=== PATIENT | female | born 1960 | race Caucasian/White ===

== ENCOUNTER → 2016-12-24 | Outpatient (CLI) | payer MEDICARE ==
--- NOTE | 2016-12-24 14:37 | NM ---
EXAMINATION TYPE: NM bone/joint limited DATE OF EXAM: 12/24/2016 COMPARISON: NONE HISTORY: Left foot metatarsalgia. TECHNIQUE: After the intravenous administration of 26.6 mCi Tc 99m MDP. Images acquired 3 hours pos t injection. Multiple views of the are submitted. There is increased uptake in the right forefoot both medially and laterally. There is increased upta ke in the region of the third MTP joint on the left. IMPRESSION: 1. ACTIVITY ON THE RIGHT IS LIKELY DEGENERATIVE. 2. ACTIVITY IN THE REGION OF THE THIRD MTP JOINT. ACCOMPANYING RADIOGRAPH FAILS TO SHOW A DEFINITE AB NORMALITY IN THIS AREA.
== END | disposition home or self-care (01) ==
LOC: RADNMMAIN 10:20
PROVIDERS: ATTEND Orthopaedic Surgery
DX: M77.42 Metatarsalgia, left foot (principal); M20.42 Other hammer toe(s) (acquired), left foot; M21.42 Flat foot [pes planus] (acquired), left foot; E10.9 Type 1 diabetes mellitus without complications; M84.375A Stress fracture, left foot, initial encounter for fracture
CPT/HCPCS: 78300; A9503

== ENCOUNTER → 2017-03-26 | Outpatient (CLI) | payer MEDICARE ==
--- NOTE | 2017-03-26 10:27 | XR ---
EXAMINATION TYPE: XR hand complete LT DATE OF EXAM: 03/26/2017 CLINICAL HISTORY: Pain and swelling after fall injury a few months ago TECHNIQUE: Frontal, lateral and oblique images of the left hand are obtained. COMPARISON: None. FINDINGS: There is no acute fracture/dislocation evident in the left hand. The joint spaces in the l eft hand appear within normal limits. The overlying soft tissue appears unremarkable. IMPRESSION: There is no acute or subacute fracture or dislocation in the left hand.
== END | disposition home or self-care (01) ==
LOC: RADXRMAIN 09:53
PROVIDERS: ATTEND Physician Assistant
DX: M79.642 Pain in left hand (principal)

== ENCOUNTER → 2017-06-25 | Outpatient (CLI) | payer MEDICARE ==
--- NOTE | 2017-06-26 13:36 | MM ---
Reason for exam: screening (asymptomatic). Last mammogram was performed 1 year and 3 months ago. History: Patient is postmenopausal. Family history of breast cancer in maternal aunt at age 50 and breast cancer in maternal aunt at age 60. Physical Findings: A clinical breast exam by your physician is recommended on an annual basis and results should be correlated with mammographic findings. MG 3D Screening Mammo W/Cad Bilateral CC, MLO, and XCCL view(s) were taken. Prior study comparison: April 03, 2016, bilateral MG 3d screening mammo w/cad. March 03, 2014, bilateral MG screening mammo w CAD. January 21, 2013, bilateral digital screening mammo w/CAD. There are scattered fibroglandular densities. Finding: There are typically benign round, regional calcifications in the anterior position of the right breast. There is no discrete abnormality. ASSESSMENT: Benign, BI-RAD 2 RECOMMENDATION: Routine screening mammogram of both breasts in 1 year.
== END | disposition home or self-care (01) ==
LOC: RADMAMWWP 11:01
PROVIDERS: ATTEND Family Medicine
DX: Z12.31 Encounter for screening mammogram for malignant neoplasm of breast (principal)
CPT/HCPCS: 77063; 77067

== ENCOUNTER 2018-01-20 15:12 | Inpatient (IN) | payer MEDICARE ==
[2018-01-20] MEDS ORDERED: NITROGLYCERIN OINT 1 INCH/GM PACKET TOPICAL STA (15:39)
[2018-01-20] MEDS ORDERED: ASPIRIN 81 MG PO STA (15:39)
--- NOTE | 2018-01-20 15:42 | ED ---
General Adult HPI - General Chief complaint: Chest Pain Stated complaint: Chest Pain Time Seen by Provider: 01/20/18 15:25 Source: patient, family, RN notes reviewed Mode of arrival: wheelchair Limitations: no limitations - History of Present Illness Initial comments: Patient is a pleasant 57-year-old female presenting to the emergency Department with complaints of chest discomfort. Onset of symptoms was a few days ago. Symptoms were severe on Saturday. Patient is having one to 2 episodes daily. Discomfort feels like pressure with some radiation towards the jaw. At one point there was some radiation towards the arm. Patient does have some mild associated dyspnea and nausea. No diaphoresis. Patient also has some palpitations. Patient does have a history of similar symptoms previously when she saw cardiology and was diagnosed with palpitations. - Related Data Home Medications Medication Instructions Recorded Confirmed Albuterol Sulfate [Proair Hfa] 1 - 2 puff INHALATION Q6HR PRN 10/09/14 01/20/18 Calcium Carbonate [Calcium] 600 mg PO HS 10/09/14 01/20/18 DULoxetine HCL [Cymbalta] 60 mg PO DAILY 10/09/14 01/20/18 Ergocalciferol [Vitamin D2] 50,000 unit PO TH 10/09/14 01/20/18 Exenatide Microspheres [Bydureon] 2 mg SQ SA 10/09/14 01/20/18 Ezetimibe [Zetia] 10 mg PO DAILY 10/09/14 01/20/18 HYDROcodone/APAP 7.5-325MG [We[place] 1 each PO Q8H PRN 10/09/14 01/20/18 7.5-325] Insulin Lispro [humaLOG] 4 units SQ W/BRKFST 10/09/14 01/20/18 Insulin NPH Human Isophane 16 unit SQ HS 10/09/14 01/20/18 [humuLIN N] Lidocaine 5% Patch [Lidoderm] 1 patch TOPICAL Q12H PRN 10/09/14 01/20/18 Montelukast [Singulair] 10 mg PO HS 10/09/14 01/20/18 Nadolol [Corgard] 40 mg PO BID 10/09/14 01/20/18 Pioglitazone [Actos] 15 mg PO DAILY 10/09/14 01/20/18 Ranitidine HCl [Zantac] 150 mg PO BID PRN 10/09/14 01/20/18 metFORMIN HCL [Glucophage] 1,000 mg PO BID 10/09/14 01/20/18 Aspirin [Adult Low Dose Aspirin EC] 81 mg PO DAILY 01/20/18 01/20/18 Furosemide [Lasix] 10 mg PO DAILY 01/20/18 01/20/18 Levothyroxine Sodium [Synthroid] 137 mcg PO DAILY 01/20/18 01/20/18 Ramipril [Altace] 10 mg PO DAILY 01/20/18 01/20/18 Allergies Allergy/AdvReac Type Severity Reaction Status Date / Time codeine Allergy Nausea & Verified 01/20/18 16:20 Vomiting morphine Allergy Rash/Hives Verified 01/20/18 16:20 Penicillins Allergy Rash/Hives Verified 01/20/18 16:20 Sulfa (Sulfonamide Allergy Rash/Hives Verified 01/20/18 16:20 Antibiotics) Review of Systems ROS Statement: Those systems with pertinent positive or pertinent negative responses have been documented in the HPI. ROS Other: All systems not noted in ROS Statement are negative. Constitutional: Denies: fever Eyes: Denies: eye pain ENT: Denies: ear pain Respiratory: Reports: dyspnea. Denies: cough Cardiovascular: Reports: chest pain Endocrine: Denies: heat or cold intolerance Gastrointestinal: Reports: nausea Genitourinary: Denies: dysuria Musculoskeletal: Denies: back pain Skin: Denies: rash Neurological: Denies: weakness Past Medical History Past Medical History: COPD, Diabetes Mellitus, GERD/Reflux, Hypertension, Osteoarthritis (OA), Thyroid Disorder History of Any Multi-Drug Resistant Organisms: MRSA Date of last positivie culture/infection: 06/01/2015 MDRO Source:: MRSA BACK Past Surgical History: Appendectomy, Back Surgery, Orthopedic Surgery Additional Past Surgical History / Comment(s): medical-cushings, back pain. 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 Past Psychological History: No Psychological Hx Reported Smoking Status: Never smoker Past Alcohol Use History: None Reported Past Drug Use History: None Reported General Exam Limitations: no limitations General appearance: alert, in no apparent distress Head exam: Present: atraumatic Eye exam: Present: normal appearance, PERRL ENT exam: Present: normal oropharynx Neck exam: Present: normal inspection Respiratory exam: Present: normal lung sounds bilaterally Cardiovascular Exam: Present: regular rate, normal rhythm Expanded Peripheral pulses: 2+: Radial (R), Radial (L), Posterior Tibialis (R), Posterior Tibialis (L) GI/Abdominal exam: Present: soft. Absent: tenderness Extremities exam: Present: normal inspection. Absent: pedal edema, calf tenderness Neurological exam: Present: alert Psychiatric exam: Present: normal affect, normal mood Skin exam: Present: normal color Course Vital Signs 01/20/18 01/20/18 15:19 16:58 Temperature 98.3 F 97.8 F Pulse Rate 73 65 Respiratory 18 16 Rate Blood Pressure 145/74 173/76 O2 Sat by Pulse 99 98 Oximetry EKG Findings - EKG Comments: EKG Findings:: Normal sinus rhythm 67. CO 176. QRS 92. QT 410. QTc 433. Left axis. LVH. No acute ST change. Medical Decision Making - Medical Decision Making Patient reevaluated and resting comfortably in bed. Patient updated on results and plan. Case was discussed in detail with Dr. Rain, who will admit his patient. - Lab Data Result diagrams: 01/20/18 15:45 01/20/18 15:45 Lab Results 01/20/18 01/20/18 01/20/18 Range/Units 15:45 15:45 15:45 WBC 8.2 (3.8-10.6) k/uL RBC 4.70 (3.80-5.40) m/uL Hgb 13.4 (11.4-16.0) gm/dL Hct 43.6 (34.0-46.0) % MCV 92.7 (80.0-100.0) fL MCH 28.4 (25.0-35.0) pg MCHC 30.7 L (31.0-37.0) g/dL RDW 14.3 (11.5-15.5) % Plt Count 314 (150-450) k/uL Neutrophils % 73 % Lymphocytes % 17 % Monocytes % 5 % Eosinophils % 2 % Basophils % 1 % Neutrophils # 6.0 (1.3-7.7) k/uL Lymphocytes # 1.4 (1.0-4.8) k/uL Monocytes # 0.4 (0-1.0) k/uL Eosinophils # 0.2 (0-0.7) k/uL Basophils # 0.1 (0-0.2) k/uL Hypochromasia Slight PT (9.0-12.0) sec INR (<1.2) APTT (22.0-30.0) sec Sodium 139 (137-145) mmol/L Potassium 5.1 (3.5-5.1) mmol/L Chloride 105 (98-107) mmol/L Carbon Dioxide 26 (22-30) mmol/L Anion Gap 8 mmol/L BUN 33 H (7-17) mg/dL Creatinine 1.17 H (0.52-1.04) mg/dL Est GFR (CKD-EPI)AfAm 59 (>60 ml/min/1.73 sqM) Est GFR (CKD-EPI)NonAf 52 (>60 ml/min/1.73 sqM) Glucose 114 H (74-99) mg/dL Calcium 9.2 (8.4-10.2) mg/dL Magnesium 1.8 (1.6-2.3) mg/dL Total Bilirubin 0.4 (0.2-1.3) mg/dL AST 25 (14-36) U/L ALT 26 (9-52) U/L Alkaline Phosphatase 80 (38-126) U/L Total Creatine Kinase 54 (30-135) U/L CK-MB (CK-2) 1.0 (0.0-2.4) ng/mL CK-MB (CK-2) Rel Index 1.9 Troponin I <0.012 (0.000-0.034) ng/mL NT-Pro-B Natriuret Pep pg/mL Total Protein 7.1 (6.3-8.2) g/dL Albumin 3.9 (3.5-5.0) g/dL 01/20/18 01/20/18 Range/Units 15:45 15:45 WBC (3.8-10.6) k/uL RBC (3.80-5.40) m/uL Hgb (11.4-16.0) gm/dL Hct (34.0-46.0) % MCV (80.0-100.0) fL MCH (25.0-35.0) pg MCHC (31.0-37.0) g/dL RDW (11.5-15.5) % Plt Count (150-450) k/uL Neutrophils % % Lymphocytes % % Monocytes % % Eosinophils % % Basophils % % Neutrophils # (1.3-7.7) k/uL Lymphocytes # (1.0-4.8) k/uL Monocytes # (0-1.0) k/uL Eosinophils # (0-0.7) k/uL Basophils # (0-0.2) k/uL Hypochromasia PT 9.9 (9.0-12.0) sec INR 1.0 (<1.2) APTT 22.8 (22.0-30.0) sec Sodium (137-145) mmol/L Potassium (3.5-5.1) mmol/L Chloride (98-107) mmol/L Carbon Dioxide (22-30) mmol/L Anion Gap mmol/L BUN (7-17) mg/dL Creatinine (0.52-1.04) mg/dL Est GFR (CKD-EPI)AfAm (>60 ml/min/1.73 sqM) Est GFR (CKD-EPI)NonAf (>60 ml/min/1.73 sqM) Glucose (74-99) mg/dL Calcium (8.4-10.2) mg/dL Magnesium (1.6-2.3) mg/dL Total Bilirubin (0.2-1.3) mg/dL AST (14-36) U/L ALT (9-52) U/L Alkaline Phosphatase (38-126) U/L Total Creatine Kinase (30-135) U/L CK-MB (CK-2) (0.0-2.4) ng/mL CK-MB (CK-2) Rel Index Troponin I (0.000-0.034) ng/mL NT-Pro-B Natriuret Pep 520 pg/mL Total Protein (6.3-8.2) g/dL Albumin (3.5-5.0) g/dL - Radiology Data Radiology results: image reviewed (X-ray shows no acute process) Disposition Clinical Impression: Chest pain Disposition: ADMITTED IP TO THIS HOSP Is patient prescribed a controlled substance at d/c from ED?: No Referrals: Krish Rain MD [Primary Care Provider] - 1-2 days Decision Time: 17:10
[2018-01-20 15:53] LABS: Basophils # (A) 0.1 k/uL (0-0.2); Basophils % (A) 1 %; Eosinophils # (A) 0.2 k/uL (0-0.7); Eosinophils % (A) 2 %; HCT 43.6 % (34.0-46.0); HGB 13.4 gm/dL (11.4-16.0); Hypochromasia Slight; Lymphocytes # (A) 1.4 k/uL (1.0-4.8); Lymphocytes % (A) 17 %; MCH 28.4 pg (25.0-35.0); MCHC 30.7 g/dL (31.0-37.0); MCV 92.7 fL (80.0-100.0); Mean Platelet Volume 7.1; Monocytes # (A) 0.4 k/uL (0-1.0); Monocytes % (A) 5 %; Neutrophils % (A) 73 %; Platelet Count 314 k/uL (150-450); RDW 14.3 % (11.5-15.5); WBC 8.2 k/uL (3.8-10.6)
[2018-01-20 16:03] LABS: Partial Thromboplastin Time 22.8 sec (22.0-30.0); Prothrombin Time 9.9 sec (9.0-12.0)
[2018-01-20 16:06] LABS: Albumin 3.9 g/dL (3.5-5.0); Calcium 9.2 mg/dL (8.4-10.2); Magnesium 1.8 mg/dL (1.6-2.3); Potassium 5.1 mmol/L (3.5-5.1); Total Bilirubin 0.4 mg/dL (0.2-1.3); Total Protein 7.1 g/dL (6.3-8.2)
[2018-01-20 16:08] LABS: Creatine Kinase 54 U/L (30-135)
[2018-01-20 16:21] LABS: Troponin I <0.012 ng/mL (0.000-0.034)
--- NOTE | 2018-01-20 16:40 | XR ---
EXAMINATION TYPE: XR chest 2V DATE OF EXAM: 01/20/2018 COMPARISON: 05/04/2011 INDICATION: Chest pain TECHNIQUE: Frontal and lateral views of the chest are obtained. FINDINGS: The heart size is normal. The pulmonary vasculature is normal. The lungs are clear. Fixation devices within the lower thoracic spine. IMPRESSION: 1. No acute pulmonary process.
[2018-01-20] MEDS ORDERED: NITROGLYCERIN SL TABS 0.4 MG TAB SUBLINGUAL PRN (17:08)
[2018-01-20 18:34] VITALS: BMI 31.4
[2018-01-20] MEDS ORDERED: ALBUTEROL NEBULIZED 2.5 MG/3 ML INHALATION PRN (18:58)
[2018-01-20] MEDS ORDERED: LIDOCAINE 5% PATCH TOPICAL PRN (19:00)
[2018-01-20] MEDS: NITROGLYCERIN OINT 1 INCH/GM PACKET TOPICAL SCH (20:55)
[2018-01-20 21:03] LABS: Glucose,Whole Blood 124 mg/dL (75-99)
[2018-01-20] MEDS: metFORMIN 500 MG TAB PO SCH (21:07)
[2018-01-20] MEDS: MONTELUKAST 10 MG TAB PO SCH (21:07)
[2018-01-20] MEDS: CALCIUM CARBONATE 500 MG CHEWABLE PO SCH (21:07)
[2018-01-20] MEDS: ATORVASTATIN 10 MG TAB PO SCH (21:45)
[2018-01-20] MEDS: NADOLOL 20 MG TAB PO SCH (21:45)
[2018-01-20] MEDS: INSULIN NPH 300 UNIT/3 ML VIAL SQ SCH (21:45)
[2018-01-20 22:07] LABS: Creatine Kinase 46 U/L (30-135)
[2018-01-20 22:20] LABS: Creatine Kinase MB 0.8 ng/mL (0.0-2.4); Troponin I <0.012 ng/mL (0.000-0.034)
[2018-01-21] MEDS: NITROGLYCERIN OINT 1 INCH/GM PACKET TOPICAL SCH ×2 (00:08→05:52)
[2018-01-21 02:23] LABS: Cholesterol 183 mg/dL (<200); HDL Cholesterol 35 mg/dL (40-60); LDL Cholesterol,Calculated 106 mg/dL (0-99); Triglycerides 208 mg/dL (<150)
[2018-01-21] MEDS: HYDROcodone/APAP 7.5-325MG 1 EACH TAB PO PRN ×3 (02:29→21:34)
[2018-01-21 04:20] LABS: Creatine Kinase 41 U/L (30-135)
[2018-01-21 04:34] LABS: Creatine Kinase MB 0.7 ng/mL (0.0-2.4); Troponin I <0.012 ng/mL (0.000-0.034)
[2018-01-21] MEDS: LEVOTHYROXINE 137 MCG TAB PO SCH (05:54)
[2018-01-21 06:44] LABS: Glucose,Whole Blood 76 mg/dL (75-99)
[2018-01-21] MEDS: INSULIN ASPART 100 UNIT/ML 1 ML 10 ML VIAL SQ SCH (07:54)
[2018-01-21] MEDS ORDERED: AMINOPHYLLINE 500 MG/20 ML VIAL IV PRN (08:00)
[2018-01-21] MEDS ORDERED: REGADENOSON 0.4 MG/5 ML SYRINGE IV ONE (08:00)
--- NOTE | 2018-01-21 08:53 | CONS ---
CONSULTATION Mrs. Henson is a 57-year-old female with a history of hypertension, hyperlipidemia and diabetes mellitus who is followed by Dr. Romo presented with symptoms of chest discomfort. Her discomfort started on Saturday was at rest with some dyspnea and the pain was worse with deep breathing. The discomfort subsequently resolved and she had another episode on Saturday. Yesterday she went to see her primary care physician and was scheduled to undergo outpatient workup but later on during the day, she had an episode while sitting and radiating up to her neck and across the chest and because of that came into the emergency room and subsequently admitted. The patient has no prior documented history of obstructive coronary artery disease. She had underwent myocardial perfusion imaging 2016 was unremarkable. She has no history of exertional chest discomfort. She has some dyspnea on exertion. No dizziness. She has occasional palpitation. No syncope. No PND, orthopnea, or peripheral edema. Her activity level is limited because of arthritis pain. MEDICATIONS: Her medications include ramipril 10 mg daily, metformin 1 gram twice a day, Actos 15 mg daily, nadolol 40 mg twice a day, Singulair, levothyroxine, insulin, Lasix 10 mg daily, Zetia 10 mg daily, Bydureon, vitamin D, Cymbalta, calcium, aspirin, albuterol, ranitidine and Lipitor 4 times a week. REVIEW OF SYSTEMS: RESPIRATORY SYSTEM: She has no recent wheezing. No history of documented asthma, emphysema or bronchitis. GI SYSTEM: No recent GI bleeding. No peptic ulcer disease. SYSTEM: No dysuria or hematuria. NERVOUS SYSTEM: No stroke or seizure. PHYSICAL EXAMINATION: A 57-year-old female, alert, oriented, in no apparent distress. Blood pressure 134/70 with the heart rate in the 60s. HEAD: Normocephalic. EYES: Sclerae anicteric. NECK: Good upstroke. No bruit. No jugular venous distention. LUNGS: Clear to auscultation. HEART: Regular rate and rhythm S1, S2. No S3. No S4. No murmur or rub. ABDOMEN: Soft, nontender, obese. Positive bowel sounds. No organomegaly. EXTREMITIES: No edema. Intact distal pulses. LAB DATA: Lab data revealed troponin less than 0.012. Cholesterol 208, LDL of 106. BUN and creatinine 33 and 1.17. Hemoglobin is 13.4. EKG reveals sinus mechanism with no acute ST-segment changes and voltage criteria for left ventricular hypertrophy. Chest x-ray shows no acute infiltrate. IMPRESSION: 1. Chest discomfort atypical for ischemic heart disease probably noncardiac in a patient with multiple risk factors. 2. History of hypertension. 3. Hyperlipidemia. 4. Diabetes mellitus. 5. History of arrhythmia, maintaining sinus mechanism. RECOMMENDATION: I would recommend to proceed with a myocardial perfusion imaging to further assess her status and guide her treatment. The rationale behind the procedure as well as the plan was discussed with the patient who is in full understanding and agreement. Thank you for this consult. We will follow with you. MMODL / IJN: [id number] /
[2018-01-21] MEDS: PIOGLITAZONE 15 MG TAB PO SCH (10:43)
[2018-01-21] MEDS: NADOLOL 20 MG TAB PO SCH ×2 (10:43→21:35)
[2018-01-21] MEDS: EZETIMIBE 10 MG TAB PO SCH (10:43)
[2018-01-21] MEDS: ASPIRIN 325 MG TAB PO SCH (10:43)
[2018-01-21] MEDS: metFORMIN 500 MG TAB PO SCH ×2 (10:43→17:39)
[2018-01-21] MEDS: DULoxetine HCL 60 MG CAPSULE.DR PO SCH (10:43)
[2018-01-21] MEDS: LISINOPRIL 20 MG TAB PO SCH (10:43)
[2018-01-21] MEDS: FUROSEMIDE 10 MG TAB PO SCH (10:44)
[2018-01-21] MEDS: FAMOTIDINE 20 MG TAB PO PRN ×2 (10:46→21:39)
--- NOTE | 2018-01-21 11:17 | NM ---
EXAMINATION TYPE: NM stress lexiscan cardiolite DATE OF EXAM: 01/21/2018 COMPARISON: NONE HISTORY: Chest pain TECHNIQUE: After the intravenous administration of 10.23 mCi Tc 99m Sestamibi - Cardiolite resting S PECT images acquired 45 minutes post injection. The patient received 0.4mg Lexiscan, 25.9 mCi Tc 99m Sestamibi - Stress images obtained [address] injection FINDINGS: Review of stress and rest SPECT images demonstrates mild decreased uptake along the anteroseptal left ventricle on stress as compared to rest images.Gated analysis shows normal wall motion with an estim ated left ventricular ejection fraction of 52 %. IMPRESSION: Findings suggest pharmacologically induced left ventricular myocardial ischemia.
--- NOTE | 2018-01-21 11:50 | ECHOF ---
Referral Reason:cp MEASUREMENTS -------- HEIGHT: 177.8 cm WEIGHT: 99.3 kg BP: RVIDd: 2.8 cm (< 3.3) IVSd: 1.5 cm (0.6 - 1.1) LVIDd: 3.4 cm (3.9 - 5.3) LVPWd: 1.5 cm (0.6 - 1.1) IVSs: 1.5 cm LVIDs: 2.2 cm LVPWs: 1.6 cm LAESV Index (A-L): 20.44 ml/m Ao Diam: 3.4 cm (2.0 - 3.7) AV Cusp: 2.3 cm (1.5 - 2.6) LA Diam: 3.8 cm (2.7 - 3.8) EPSS: 1.3 cm MV E Cedrick: 0.45 m/s MV DecT: 261 ms MV A Cedrick: 0.71 m/s MV E/A Ratio: 0.64 RAP: 5.00 mmHg RVSP: 16.52 mmHg MV EF SLOPE: 52.85 mm/s (70 - 150) MV EXCURSION: 1.29 cm (> 18.000) FINDINGS -------- Sinus rhythm. This was a technically difficult study with suboptimal views. The left ventricular size is normal. There is moderate concentric left ventricular hypertrophy. O verall left ventricular systolic function is normal with, an EF between 55 - 60 %. The right ventricle is normal in size and function. Normal LA size by volume 22+/-6 ml/m2. The right atrium is normal in size. 5 ml of Lumason was utilized for enhancement of images. Aortic valve is trileaflet and is mildly thickened. There is mild aortic regurgitation. There is no evidence of aortic stenosis. The mitral valve is normal. There is trace mitral regurgitation. Trace tricuspid regurgitation present. Right ventricular systolic pressure is normal at < 35 mmHg. There is no evidence of pulmonary hypertension. The pulmonic valve was not well visualized. There is no pulmonic regurgitation present. The aortic root size is normal. IVC Not well visulized. There is no pericardial effusion. CONCLUSIONS -------- 1. Sinus rhythm. 2. This was a technically difficult study with suboptimal views. 3. The left ventricular size is normal. 4. There is moderate concentric left ventricular hypertrophy. 5. Overall left ventricular systolic function is normal with, an EF between 55 - 60 %. 6. Normal LA size by volume 22+/-6 ml/m2. 7. 5 ml of Lumason was utilized for enhancement of images. 8. Aortic valve is trileaflet and is mildly thickened. 9. There is mild aortic regurgitation. 10. There is trace mitral regurgitation. 11. Trace tricuspid regurgitation present. 12. Right ventricular systolic pressure is normal at < 35 mmHg. 13. The pulmonic valve was not well visualized. 14. There is no pulmonic regurgitation present. 15. The aortic root size is normal. 16. IVC Not well visulized. 17. There is no pericardial effusion. BAG HANGER: Matt Caicedo RDCS
[2018-01-21 12:18] LABS: Glucose,Whole Blood 102 mg/dL (75-99)
--- NOTE | 2018-01-21 12:42 | P.HPIM ---
History of Present Illness 57-year-old female presented to her family physician office yesterday with complaints of chest pain intermittently for 2 days. Subsequently developed more chest pain that radiated to her neck presented then the emergency room. 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 Past Anesthesia/Blood Transfusion Reactions: No Reported Reaction Past Psychological History: No Psychological Hx Reported Smoking Status: Never smoker Past Alcohol Use History: None Reported Past Drug Use History: None Reported Medications and Allergies Home Medications Medication Instructions Recorded Confirmed Type Albuterol Sulfate [Proair Hfa] 1 - 2 puff INHALATION Q6HR PRN 10/09/14 01/20/18 History Calcium Carbonate [Calcium] 600 mg PO HS 10/09/14 01/20/18 History DULoxetine HCL [Cymbalta] 60 mg PO DAILY 10/09/14 01/20/18 History Ergocalciferol [Vitamin D2] 50,000 unit PO TH 10/09/14 01/20/18 History Exenatide Microspheres [Bydureon] 2 mg SQ SA 10/09/14 01/20/18 History Ezetimibe [Zetia] 10 mg PO DAILY 10/09/14 01/20/18 History HYDROcodone/APAP 7.5-325MG [[place]ette 1 each PO Q8H PRN 10/09/14 01/20/18 History 7.5-325] Insulin Lispro [humaLOG] 4 units SQ W/BRKFST 10/09/14 01/20/18 History Insulin NPH Human Isophane 16 unit SQ HS 10/09/14 01/20/18 History [humuLIN N] Lidocaine 5% Patch [Lidoderm] 1 patch TOPICAL Q12H PRN 10/09/14 01/20/18 History Montelukast [Singulair] 10 mg PO HS 10/09/14 01/20/18 History Nadolol [Corgard] 40 mg PO BID 10/09/14 01/20/18 History Pioglitazone [Actos] 15 mg PO DAILY 10/09/14 01/20/18 History Ranitidine HCl [Zantac] 150 mg PO BID PRN 10/09/14 01/20/18 History metFORMIN HCL [Glucophage] 1,000 mg PO BID 10/09/14 01/20/18 History Aspirin [Adult Low Dose Aspirin EC] 81 mg PO DAILY 01/20/18 01/20/18 History Atorvastatin [Lipitor] 1 tab PO DIRECTED 01/20/18 01/20/18 History Furosemide [Lasix] 10 mg PO DAILY 01/20/18 01/20/18 History Levothyroxine Sodium [Synthroid] 137 mcg PO DAILY 01/20/18 01/20/18 History Ramipril [Altace] 10 mg PO DAILY 01/20/18 01/20/18 History Allergies Allergy/AdvReac Type Severity Reaction Status Date / Time codeine Allergy Nausea & Verified 01/20/18 16:20 Vomiting morphine Allergy Rash/Hives Verified 01/20/18 16:20 Penicillins Allergy Rash/Hives Verified 01/20/18 16:20 Sulfa (Sulfonamide Allergy Rash/Hives Verified 01/20/18 16:20 Antibiotics) Physical Exam Vitals: Vital Signs Temp Pulse Pulse Resp BP BP Pulse Ox 01/21/18 11:52 98.5 F 70 16 141/80 99 01/21/18 07:10 98.2 F 65 16 134/76 98 01/21/18 03:56 97.6 F 63 16 144/79 97 01/21/18 03:38 16 01/21/18 00:00 16 01/20/18 23:36 98.2 F 70 16 123/76 97 01/20/18 20:00 16 01/20/18 18:47 71 16 01/20/18 18:05 97.6 F 71 16 141/82 99 01/20/18 18:04 97.8 F 78 16 159/78 98 01/20/18 16:58 97.8 F 65 16 173/76 98 01/20/18 15:19 98.3 F 73 18 145/74 99 Intake and Output 01/20/18 01/21/18 01/21/18 22:59 06:59 14:59 Intake Total 0 Balance 0 Intake: Oral 0 Other: Voiding Method Toilet Toilet # Voids 2 Weight 99.337 kg 99.337 kg - Constitutional General appearance: obese - EENT Eyes: PERRLA Ears: bilateral: normal - Neck Neck: normal ROM - Respiratory Respiratory: bilateral: CTA - Cardiovascular Rhythm: regular - Gastrointestinal General gastrointestinal: soft - Integumentary Integumentary: normal - Neurologic Neurologic: CNII-XII intact - Musculoskeletal Musculoskeletal: gait normal - Psychiatric Psychiatric: A&O x's 3, appropriate affect, intact judgment & insight Results CBC & Chem 7: 01/20/18 15:45 01/20/18 15:45 Labs: Abnormal Lab Results - Last 24 Hours (Table) 01/20/18 01/20/18 01/20/18 Range/Units 15:45 15:45 15:45 MCHC 30.7 L (31.0-37.0) g/dL BUN 33 H (7-17) mg/dL Creatinine 1.17 H (0.52-1.04) mg/dL Glucose 114 H (74-99) mg/dL POC Glucose (mg/dL) (75-99) mg/dL Triglycerides 208 H (<150) mg/dL LDL Cholesterol, Calc 106 H (0-99) mg/dL HDL Cholesterol 35 L (40-60) mg/dL 01/20/18 01/21/18 Range/Units 20:58 12:08 MCHC (31.0-37.0) g/dL BUN (7-17) mg/dL Creatinine (0.52-1.04) mg/dL Glucose (74-99) mg/dL POC Glucose (mg/dL) 124 H 102 H (75-99) mg/dL Triglycerides (<150) mg/dL LDL Cholesterol, Calc (0-99) mg/dL HDL Cholesterol (40-60) mg/dL Chest x-ray: report reviewed Thrombosis Risk Factor Assmnt - Choose All That Apply Any of the Below Risk Factors Present?: Yes Each Factor Represents 1 point: Age 41-60 years, Obesity (BMI >25) Other Risk Factors: No Thrombosis Risk Factor Assessment Total Risk Factor Score: 2 Thrombosis Risk Factor Assessment Level: Low Risk Assessment and Plan Plan: Assessment Chest pain Lexiscan showing left ventricular myocardial ischemia History of COPD Diabetes type 2 GERD Hypertension Hyper lipidemia Osteoarthritis Thyroid disease Plan Continue consultation with cardiology
--- NOTE | 2018-01-21 13:08 | EST ---
EXERCISE STRESS DATE OF SERVICE: 01/21/2018 AGE: 57 SEX: Female HT: 70" WT: 219 pounds PROTOCOL: Lexiscan Cardiolite STAGE: DURATION OF EXERCISE: HEART RATE REST: 70 BLOOD PRESSURE REST: 144/81 MAXIMUM HEART RATE ACHIEVED: 84 MAXIMUM BLOOD PRESSURE: 161/87 85% MPHR: 100% MPHR: METS: INDICATIONS: Chest pain. CLINICAL INFORMATION: Baseline rhythm is sinus mechanism, rate 70, normal axis and intervals, normal electrocardiogram. Baseline blood pressure 144/81 mmHg. Patient received an injection of Lexiscan. Electrocardiographic monitoring revealed no evidence of diagnostic ischemic ST deviation. Cardiolite was injected per protocol. CONCLUSION: 1. Nondiagnostic electrocardiograph stress testing. 2. Nuclear images will be reported separately. MMODL / IJN: [id number] /
[2018-01-21] MEDS ORDERED: SODIUM CHLORIDE 0.9% 1,000 ML in EMPTY BAG 1 BAG IV ONE (14:01)
[2018-01-21] MEDS ORDERED: ALPRAZolam 0.5 MG TAB PO PRN (14:01)
[2018-01-21] MEDS ORDERED: ALPRAZolam 0.25 MG TAB PO PRN (14:01)
--- NOTE | 2018-01-21 14:12 | P.PN ---
Progress Note - Text Lexiscan stress test revealed possible area of stress induced ischemia with decreased uptake along sara-septal LV. 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 I have discussed the risks, benefits and alternative therapies for the above-mentioned procedure and for both sedation/analgesia as well as necessary blood product administration, if indicated, as they pertain to this patient. The patient has indicated understanding and acceptance of the risks and procedures discussed. Questions have been answered appropriately and she is agreeable to proceed with above stated procedure. This has been boarded for tomorrow morning pending Dr. Romo's review of the images.
[2018-01-21 14:35] LABS: Hemoglobin A1C 6.7 % (4.0-6.0)
[2018-01-21 17:12] LABS: Glucose,Whole Blood 100 mg/dL (75-99)
[2018-01-21 20:51] LABS: Glucose,Whole Blood 114 mg/dL (75-99)
[2018-01-21] MEDS: MONTELUKAST 10 MG TAB PO SCH (21:34)
[2018-01-21] MEDS: CALCIUM CARBONATE 500 MG CHEWABLE PO SCH (21:35)
[2018-01-21] MEDS: INSULIN NPH 300 UNIT/3 ML VIAL SQ SCH (21:35)
[2018-01-22] MEDS: LEVOTHYROXINE 137 MCG TAB PO SCH (06:42)
[2018-01-22] MEDS: ATORVASTATIN 10 MG TAB PO SCH (06:42)
[2018-01-22] MEDS: DULoxetine HCL 60 MG CAPSULE.DR PO SCH (06:42)
[2018-01-22] MEDS: ASPIRIN 325 MG TAB PO SCH (06:42)
[2018-01-22] MEDS: LISINOPRIL 20 MG TAB PO SCH (06:42)
[2018-01-22] MEDS: EZETIMIBE 10 MG TAB PO SCH (06:43)
[2018-01-22 06:49] LABS: Glucose,Whole Blood 106 mg/dL (75-99)
[2018-01-22] MEDS: INSULIN ASPART 100 UNIT/ML 1 ML 10 ML VIAL SQ SCH (08:29)
[2018-01-22] MEDS: NADOLOL 20 MG TAB PO SCH ×2 (08:29→21:41)
[2018-01-22] MEDS: HYDROcodone/APAP 7.5-325MG 1 EACH TAB PO PRN ×2 (08:39→19:58)
[2018-01-22] MEDS ORDERED: IV FLUID CONTINUATION 600 ML IV ONE (11:15)
[2018-01-22] MEDS ORDERED: LIDOCAINE 1% INJ 10MG/ML (20 ML MDV) ONE (11:19)
[2018-01-22] MEDS ORDERED: VERAPAMIL 2.5 MG/ML 2 ML AMP ONE (11:19)
[2018-01-22] MEDS ORDERED: MIDAZOLAM 2 MG/2 ML VIAL ONE (11:19)
[2018-01-22] MEDS ORDERED: fentaNYL (PF) 50 MCG/ML 2 ML AMP ONE (11:19)
[2018-01-22] MEDS ORDERED: HEPARIN SODIUM 1,000 UN/ML (10ML VL) ONE (11:19)
[2018-01-22] MEDS ORDERED: MIDAZOLAM 2 MG/2 ML VIAL IVP ONE (11:40)
[2018-01-22] MEDS ORDERED: fentaNYL (PF) 50 MCG/ML 2 ML AMP IVP ONE (11:40)
[2018-01-22] MEDS ORDERED: LIDOCAINE 1% INJ 10MG/ML (10 ML MDV) SQ ONE (11:43)
[2018-01-22] MEDS ORDERED: VERAPAMIL SYRINGE (5 MG/10 ML) INTRAARTER ONE (11:50)
[2018-01-22] MEDS ORDERED: HEPARIN SODIUM 1,000 UN/ML (10ML VL) IV ONE (11:52)
[2018-01-22] MEDS ORDERED: PRASUGREL 10 MG TAB ONE (12:15)
[2018-01-22] MEDS ORDERED: PRASUGREL 10 MG TAB PO ONE (12:19)
[2018-01-22] MEDS ORDERED: BIVALIRUDIN BOLUS 250 MG/50 ML IV ONE (12:22)
[2018-01-22] MEDS ORDERED: BIVALIRUDIN 250 MG in SODIUM CHLORIDE 0.9% 50 ML IV ONE (12:22)
[2018-01-22] MEDS ORDERED: NITROGLYCERIN 1000MCG/10ML SYRINGE INTRAARTER ONE (12:24)
[2018-01-22] MEDS ORDERED: IOPAMIDOL-370 125ML BTL INJ ONE (12:28)
[2018-01-22] MEDS ORDERED: IOPAMIDOL-370 50ML BTL INJ ONE (12:39)
[2018-01-22] MEDS ORDERED: NITROGLYCERIN SL TABS 0.4 MG TAB SUBLINGUAL PRN (12:43)
[2018-01-22] MEDS ORDERED: MAG HYDROX/AL HYDROX/SIMETH 30 ML CUP PO PRN (12:43)
[2018-01-22] MEDS ORDERED: RX INFO: IV CONTRAST WAS GIVEN 1 EACH MISC MISCELLANE PRN (12:43)
[2018-01-22] MEDS ORDERED: ATROPINE SULFATE 0.1 MG/ML 10ML SYRINGE IV PRN (12:43)
[2018-01-22] MEDS ORDERED: ZOLPIDEM 5 MG TAB PO PRN (12:43)
[2018-01-22] MEDS ORDERED: SODIUM CHLORIDE 0.9% 1,000 ML IV SCH (12:45)
--- NOTE | 2018-01-22 14:16 | P.CARDCATH ---
Date of Procedure: 01/22/18 Preoperative Diagnosis: Chest pains and positive stress test Postoperative Diagnosis: Critical lesion involving the mid LAD Procedure(s) Performed: Left heart catheterization without left ventriculography Description of Procedure: HISTORY: This is a 57-year-old female with history of hypertension, hypercholesteremia, and diabetes who was admitted to the hospital with chest pain and neck pain. Her cardiac enzymes and EKGs were negative. A stress test showed ischemia in the anterolateral wall. Patient is advised to have cardiac catheterization for definitive diagnosis. CONSENT:I have discussed the risks, benefits and alternative therapies for the above-mentioned procedure and for both sedation/analgesia as well as necessary blood product administration, if indicated, as they pertain to this patient. The patient has indicated understanding and acceptance of the risks and procedures discussed. [] PROCEDURE: Patient was brought to the lab in a fasting state. Patient was given some IV sedation. The right wrist is infiltrated with lidocaine and right artery was entered using Seldinger technique. A 6-[place] catheter was left in place and selective coronary arteriography was performed. Patient tolerated the procedure well. Patient went on to have 10 placement of the mid LAD. Dr. Beal Conscious Sedation: Versed 1 mg Fentanyl. 50g Duration 29 minutes HEMODYNAMICS: The aortic pressure is about 130/70. Left ankle end-diastolic pressure is 8-12. There was no gradient across the aortic valve SELECTIVE CORONARY ARTERIOGRAPHY: LEFT MAIN: Normal length and free of occlusive disease THE LEFT ANTERIOR DESCENDING CORONARY ARTERY:. This is a good caliber vessel with mild ectasia and concentric 70% lesion in the mid LAD after the first septal branch. Rest of the LAD is free of occlusive disease THE LEFT CIRCUMFLEX AND IS CORONARY ARTERY:. Fair Caliber vessel free of any occlusive disease THE RIGHT CORONARY ARTERY: Dominant vessel with mild ectasia. Free of any focal occlusive disease LEFT VENTRICULOGRAPHY: Not performed FINAL IMPRESSION: Critical lesion involving the mid LAD PLAN:. Patient is going to have stent placement of the mid LAD PROGNOSIS:. Fair
--- NOTE | 2018-01-22 15:00 | PTCA ---
PERCUTANEOUSTRANS CORORONARY ANGIOGRAPHY Mrs. Henson is a 57-year-old female with a known history of hypertension, hyperlipidemia, and diabetes mellitus who presented with symptoms of chest discomfort and no evidence of myocardial infarction. She underwent myocardial perfusion imaging that revealed evidence of inducible ischemia involving the anteroseptal wall. In view of that, she underwent cardiac catheterization by Dr. Romo, was found to have critical stenosis involving the mid LAD in a calcified segment. Based on those findings, recommendation regarding angioplasty and stenting. The procedures, risks and complications were discussed with the patient who is in full understanding and agreement. PROCEDURE: A 6-[place] 3.5 guiding catheter was introduced into the system. After cannulating the left main, a 0.014 balanced medium weight J-wire was advanced across the lesion and positioned distally. Then a 2.75 x 12 mm Xience Alpine stent was deployed. It was dilated at 16 atmospheres. After the last inflation, after appropriate wait, the balloon and the guidewire were withdrawn back in the guiding catheter. Images were obtained, repeated. Those images reveal stable successful stenting. At that point, the guiding catheter, the balloon and the guidewire were removed. The sheath was removed. Hemostasis was obtained with deployment of a TR band. There was no immediate complication. The patient was returned to her room in stable condition. Of note, the patient received Angiomax per protocol as well as oral loading dose off Effient. She had dyspnea and EKG changes with the inflation that resolved at the end procedure. RESULTS: Successful stenting of the mid LAD with reduction of stenosis from 70% to 0%. RECOMMENDATIONS: The patient will be continued on aspirin, Effient, beta emilee, and statin. The importance of dual antiplatelet treatment were discussed with the patient and her family and they are in full understanding and agreement. Duration of procedure 20 minutes. MMODL / IJN: [id number] /
[2018-01-22] MEDS ORDERED: ACETAMINOPHEN TAB 325 MG TAB ONE (15:47)
[2018-01-22 17:06] LABS: Glucose,Whole Blood 85 mg/dL (75-99)
--- NOTE | 2018-01-22 18:13 | P.PN ---
Subjective Patient interviewed post cardiac cath. Patient sitting up in bed without complaint at this time. Patient had a stent placed to the LAD. Patient will be transferred to [facility] care Objective - Vital Signs Vital signs: Vital Signs Temp 97.6 F 01/22/18 07:14 Pulse 65 01/22/18 14:38 Resp 16 01/22/18 07:14 BP 180/81 01/22/18 14:38 Pulse Ox 97 01/22/18 14:38 Intake & Output 01/21/18 01/22/18 01/22/18 18:59 06:59 18:59 Intake Total 952 400 99.38 Balance 952 400 99.38 Weight 99.337 kg Intake: IV 400 99.38 Sodium Chloride 0.9% 1, 400 000 ml In Empty Bag 1 bag @ 1 ML/KG/HR 99.33 mls/ hr IV .Q10H5M ONE Rx#: [id number] Oral 952 Other: Voiding Method Toilet Toilet Toilet # Voids 2 2 - Constitutional General appearance: Present: obese - EENT Eyes: Present: PERRLA Ears: bilateral: normal - Neck Neck: Present: normal ROM - Respiratory Respiratory: bilateral: CTA - Cardiovascular Rhythm: regular - Gastrointestinal General gastrointestinal: Present: soft - Integumentary Integumentary: Present: normal - Neurologic Neurologic: Present: CNII-XII intact - Musculoskeletal Musculoskeletal: Present: gait normal - Psychiatric Psychiatric: Present: A&O x's 3, appropriate affect, intact judgment & insight - Labs CBC & Chem 7: 01/20/18 15:45 01/20/18 15:45 Labs: Abnormal Lab Results - Last 24 Hours (Table) 01/21/18 01/22/18 Range/Units 20:47 06:44 POC Glucose (mg/dL) 114 H 106 H (75-99) mg/dL Assessment and Plan Plan: Assessment Chest pain Coronary artery disease post stent to LAD History of COPD Diabetes type 2 GERD Hypertension Hyperlipidemia Osteoarthritis Hypothyroidism Plan Continue consultation with cardiology
[2018-01-22] MEDS: PIOGLITAZONE 15 MG TAB PO SCH (19:43)
[2018-01-22] MEDS: MONTELUKAST 10 MG TAB PO SCH (19:58)
[2018-01-22 20:07] VITALS: RESP 16
[2018-01-22] MEDS: FUROSEMIDE 10 MG TAB PO SCH (20:43)
[2018-01-22 21:20] LABS: Glucose,Whole Blood 134 mg/dL (75-99)
[2018-01-22] MEDS: CALCIUM CARBONATE 500 MG CHEWABLE PO SCH (21:41)
[2018-01-22] MEDS: INSULIN NPH 300 UNIT/3 ML VIAL SQ SCH (22:22)
[2018-01-23 05:54] LABS: Glucose,Whole Blood 105 mg/dL (75-99)
[2018-01-23] MEDS: INSULIN ASPART 100 UNIT/ML 1 ML 10 ML VIAL SQ SCH (06:15)
[2018-01-23] MEDS: LEVOTHYROXINE 137 MCG TAB PO SCH (06:16)
[2018-01-23 07:22] LABS: Calcium 9.1 mg/dL (8.4-10.2); Potassium 4.4 mmol/L (3.5-5.1)
--- NOTE | 2018-01-23 08:13 | P.PN ---
Subjective Progress Note Date: 01/23/18 Principal diagnosis: Coronary artery disease This is a pleasant 57-year-old female patient who presented to the hospital with chest discomfort and ruled out for acute coronary event. She underwent a stress test and that showed anterior ischemia. Subsequently she underwent a heart catheterization and that revealed severe disease involving the mid LAD. The patient underwent successful stenting of the mid LAD using drug-eluting stent. On follow-up with her today, she is asymptomatic and denies having any chest pain or discomfort or shortness of breath. No dizziness or lightheadedness and no feeling of heart racing or fluttering. The procedure was performed from the right radial artery and she does have a good right radial pulse. From a cardiovascular standpoint of view, the patient can be discharged home. Objective - Vital Signs Vital signs: Vital Signs Temp 97.4 F L 01/23/18 05:44 Pulse 69 01/23/18 05:44 Resp 16 01/23/18 05:44 BP 126/75 01/23/18 05:44 Pulse Ox 97 01/23/18 05:44 Intake & Output 01/22/18 01/23/18 01/23/18 18:59 06:59 18:59 Intake Total 579.38 Balance 579.38 Intake: IV 99.38 Oral 480 Other: Voiding Method Toilet # Voids 1 1 - Constitutional General appearance: Present: no acute distress - Respiratory Respiratory: bilateral: CTA - Cardiovascular Rhythm: regular Heart sounds: normal: S1, S2 - Labs CBC & Chem 7: 01/20/18 15:45 01/23/18 06:16 Labs: Abnormal Lab Results - Last 24 Hours (Table) 01/22/18 01/23/18 01/23/18 Range/Units 21:19 05:53 06:16 Chloride 109 H (98-107) mmol/L BUN 19 H (7-17) mg/dL POC Glucose (mg/dL) 134 H 105 H (75-99) mg/dL Assessment and Plan Assessment: Assessment #1 CAD and status post stenting of the LAD #2 hypertension #3 dyslipidemia Plan #1 from the cardiovascular standpoint of view, the patient can be discharged home #2 she is on dual antiplatelet therapy #3 continue aspirin, Effient, and statin
[2018-01-23 08:21] VITALS: TEMP 98.2
[2018-01-23] MEDS: LISINOPRIL 20 MG TAB PO SCH (08:29)
[2018-01-23] MEDS: PIOGLITAZONE 15 MG TAB PO SCH (08:29)
[2018-01-23] MEDS: EZETIMIBE 10 MG TAB PO SCH (08:29)
[2018-01-23] MEDS: DULoxetine HCL 60 MG CAPSULE.DR PO SCH (08:29)
[2018-01-23] MEDS: HYDROcodone/APAP 7.5-325MG 1 EACH TAB PO PRN (08:29)
[2018-01-23] MEDS: NADOLOL 20 MG TAB PO SCH (08:29)
[2018-01-23] MEDS ORDERED: ASPIRIN 81 MG PO SCH (09:00)
[2018-01-23] MEDS ORDERED: ATORVASTATIN 40 MG TAB PO SCH (09:00)
[2018-01-23] MEDS ORDERED: ERGOCALCIFEROL 50,000 UNIT CAP PO SCH (09:00)
[2018-01-23] MEDS ORDERED: ASPIRIN 325 MG TAB PO SCH (09:00)
[2018-01-23 11:10] LABS: Glucose,Whole Blood 117 mg/dL (75-99)
[2018-01-23 11:19] VITALS: BP 114/65; PULSE 81
--- NOTE | 2018-01-23 12:24 | P.DS ---
Providers Date of admission: 01/21/18 15:01 Expected date of discharge: 01/23/18 Attending physician: Krish Rain Consults: 01/20/18 17:08 Consult Physician Urgent Consulting Provider: Mansi Romo Consult Reason/Comments: cp Do you want consulting provider notified?: Yes 01/22/18 12:43 Consult Physician Routine Consulting Provider: [facility] Consult Reason/Comments: Post Interventional patient Do you want consulting provider notified?: Already Contacted Primary care physician: Krish Rain [facility]: 57-year-old female presented the emergency room with chest pain. Patient had been evaluated by family physician the day before for the same. Patient found to have cardiac disease to LAD patient was stented. 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 Krish Rain Follow-up with cardiology Patient Condition at Discharge: Serious Plan - Discharge Summary Discharge Rx Participant: No New Discharge Prescriptions: New Atorvastatin [Lipitor] 40 mg PO DAILY #30 tab Nitroglycerin Sl Tabs [Nitrostat] 0.4 mg SUBLINGUAL Q5M PRN #25 tab PRN Reason: Chest Pain Prasugrel [Effient] 10 mg PO DAILY #30 tab Insulin Aspart [NovoLOG (formulary)] 4 unit SQ AC-BRKFST vial Continue Lidocaine 5% Patch [Lidoderm 5% Patch] 1 patch TOPICAL Q12H PRN PRN Reason: Pain HYDROcodone/APAP 7.5-325MG [[place] 7.5-325] 1 each PO Q8H PRN PRN Reason: Pain Ergocalciferol [Vitamin D2 (DRISDOL)] 50,000 unit PO TH DULoxetine HCL [Cymbalta] 60 mg PO DAILY Nadolol [Corgard] 40 mg PO BID Calcium Carbonate [Calcium] 600 mg PO HS Montelukast [Singulair] 10 mg PO HS Ezetimibe [Zetia] 10 mg PO DAILY Albuterol Sulfate [Proair Hfa] 1 - 2 puff INHALATION Q6HR PRN PRN Reason: Shortness Of Breath metFORMIN HCL [Glucophage] 1,000 mg PO BID Ranitidine HCl [Zantac] 150 mg PO BID PRN PRN Reason: Heartburn Pioglitazone [Actos] 15 mg PO DAILY Insulin NPH Human Isophane [humuLIN N] 16 unit SQ HS Insulin Lispro [humaLOG] 4 units SQ W/BRKFST Exenatide Microspheres [Bydureon] 2 mg SQ SA Aspirin [Adult Low Dose Aspirin EC] 81 mg PO DAILY Furosemide [Lasix] 10 mg PO DAILY Levothyroxine Sodium [Synthroid] 137 mcg PO DAILY Ramipril [Altace] 10 mg PO DAILY Discontinued Atorvastatin [Lipitor] 1 tab PO DIRECTED Discharge Medication List Albuterol Sulfate [Proair Hfa] 1 - 2 puff INHALATION Q6HR PRN 10/09/14 [History] Calcium Carbonate [Calcium] 600 mg PO HS 10/09/14 [History] DULoxetine HCL [Cymbalta] 60 mg PO DAILY 10/09/14 [History] Ergocalciferol [Vitamin D2 (DRISDOL)] 50,000 unit PO TH 10/09/14 [History] Exenatide Microspheres [Bydureon] 2 mg SQ SA 10/09/14 [History] Ezetimibe [Zetia] 10 mg PO DAILY 10/09/14 [History] HYDROcodone/APAP 7.5-325MG [[place] 7.5-325] 1 each PO Q8H PRN 10/09/14 [History] Insulin Lispro [humaLOG] 4 units SQ W/BRKFST 10/09/14 [History] Insulin NPH Human Isophane [humuLIN N] 16 unit SQ HS 10/09/14 [History] Lidocaine 5% Patch [Lidoderm 5% Patch] 1 patch TOPICAL Q12H PRN 10/09/14 [ History] Montelukast [Singulair] 10 mg PO HS 10/09/14 [History] Nadolol [Corgard] 40 mg PO BID 10/09/14 [History] Pioglitazone [Actos] 15 mg PO DAILY 10/09/14 [History] Ranitidine HCl [Zantac] 150 mg PO BID PRN 10/09/14 [History] metFORMIN HCL [Glucophage] 1,000 mg PO BID 10/09/14 [History] Aspirin [Adult Low Dose Aspirin EC] 81 mg PO DAILY 01/20/18 [History] Furosemide [Lasix] 10 mg PO DAILY 01/20/18 [History] Levothyroxine Sodium [Synthroid] 137 mcg PO DAILY 01/20/18 [History] Ramipril [Altace] 10 mg PO DAILY 01/20/18 [History] Atorvastatin [Lipitor] 40 mg PO DAILY #30 tab 01/23/18 [Rx] Insulin Aspart [NovoLOG (formulary)] 4 unit SQ AC-BRKFST vial 01/23/18 [Rx] Nitroglycerin Sl Tabs [Nitrostat] 0.4 mg SUBLINGUAL Q5M PRN #25 tab 01/23/18 [Rx ] Prasugrel [Effient] 10 mg PO DAILY #30 tab 01/23/18 [Rx] Follow up Appointment(s)/Referral(s): Krish Rain MD [Primary Care Provider] - 1-2 days
[2018-01-23] MEDS ORDERED: PRASUGREL 10 MG TAB PO SCH (12:44)
== END 2018-01-23 14:23 | disposition home or self-care (01) | DRG 247 ==
LOC: EC 15:12 → 3OBS 17:10 → OBSVTOIN 01-21 15:01 → 6SEL 01-22 12:38
PROVIDERS: ADMIT Family Medicine; ATTEND Family Medicine
PROC: B211YZZ Fluoroscopy of Multiple Coronary Arteries using Other Contrast (ICD-10-PCS; 2018-01-22)
PROC: 027034Z Dilation of Coronary Artery, One Artery with Drug-eluting Intraluminal Device, Percutaneous Approach (ICD-10-PCS; principal; 2018-01-22 11:15)
PROC: 4A023N7 Measurement of Cardiac Sampling and Pressure, Left Heart, Percutaneous Approach (ICD-10-PCS; 2018-01-22 11:15)
DX: I25.119 Atherosclerotic heart disease of native coronary artery with unspecified angina pectoris (principal); E24.9 Cushing's syndrome, unspecified; J44.9 Chronic obstructive pulmonary disease, unspecified; E11.9 Type 2 diabetes mellitus without complications; K21.9 Gastro-esophageal reflux disease without esophagitis; I10 Essential (primary) hypertension; M19.91 Primary osteoarthritis, unspecified site; E89.0 Postprocedural hypothyroidism; E78.5 Hyperlipidemia, unspecified; M54.9 Dorsalgia, unspecified; Z79.82 Long term (current) use of aspirin; Z79.4 Long term (current) use of insulin; Z79.890 Hormone replacement therapy; Z79.899 Other long term (current) drug therapy; Z86.14 Personal history of Methicillin resistant Staphylococcus aureus infection; Z88.5 Allergy status to narcotic agent; Z88.0 Allergy status to penicillin; Z88.2 Allergy status to sulfonamides
CPT/HCPCS: 36415; 71046; 78452; 80048; 80053; 80061; 82550; 82553; 83036; 83735; 83880; 84484; 85025; 85610; 85730; 93017; 93306; 93458; 99285

== ENCOUNTER → 2018-09-26 | Outpatient (CLI) | payer MEDICARE ==
--- NOTE | 2018-09-28 15:31 | MR ---
EXAMINATION TYPE: MR pituitary wo/w con DATE OF EXAM: 09/26/2018 COMPARISON: CT brain dated 10/08/2014 HISTORY: F/U on pituitary tumor, hx surgery TECHNIQUE: Multiplanar, multisequence images of the brain and brainstem is performed without and with IV contras t, utilizing 9 mL intravenous Gadavist . FINDINGS: On coronal imaging the far right lateral pituitary gland is diminutive in comparison to the left and likely surgically absent. Precontrast minimal T1 hypointensity in the neural hypophysis is physiologic related to the pituitary bright spot. Punctate T2/T1 markedly hypointense region in the l eft pituitary gland that does not enhance relates to hemosiderin deposition, possibly from prior hemo rrhage or postsurgical. The pituitary gland is slightly decreased in size which also is likely postsu rgical. There is no abnormal thickening of the pituitary stalk nor impression on the optic chiasm. Th e cavernous sinuses appear unremarkable. The 7th and 8th cranial nerves in their visualized portions demonstrate no abnormal enhancement. Venous plexus enhancement of the right cavernous sinus is slight ly asymmetrically greater than the left, likely incidental well-circumscribed meningioma is not suspe cted. IMPRESSION: Postsurgical change of the pituitary gland with focus of hemosiderin deposition that may be postsurgical or related to prior hemorrhage. No findings to suggest residual pituitary tumor.
== END | disposition home or self-care (01) ==
LOC: RADMRIMAIN 18:33
PROVIDERS: ATTEND Internal Medicine Endocrinology, Diabetes & Metabolism
DX: Z09 Encounter for follow-up examination after completed treatment for conditions other than malignant neoplasm (principal); Z86.39 Personal history of other endocrine, nutritional and metabolic disease; Z98.890 Other specified postprocedural states
CPT/HCPCS: 70553; A9585

== ENCOUNTER → 2019-01-01 | Outpatient (CLI) | payer MEDICARE ==
--- NOTE | 2019-01-05 09:26 | MM ---
Reason for exam: screening (asymptomatic). Last mammogram was performed 1 year and 6 months ago. History: Patient is postmenopausal. Family history of breast cancer in maternal aunt at age 50 and breast cancer in maternal aunt at age 60. Physical Findings: A clinical breast exam by your physician is recommended on an annual basis and results should be correlated with mammographic findings. MG 3D Screening Mammo W/Cad Bilateral CC and MLO view(s) were taken. Prior study comparison: June 25, 2017, bilateral MG 3d screening mammo w/cad. April 03, 2016, bilateral MG 3d screening mammo w/cad. There are scattered fibroglandular densities. No significant changes when compared with prior studies. ASSESSMENT: Benign, BI-RAD 2 RECOMMENDATION: Routine screening mammogram of both breasts in 1 year.
== END | disposition home or self-care (01) ==
LOC: RADMAMWWP 07:58
PROVIDERS: ATTEND Internal Medicine
DX: Z12.31 Encounter for screening mammogram for malignant neoplasm of breast (principal)
CPT/HCPCS: 77063; 77067

== ENCOUNTER 2019-07-03 18:06 | Observation (INO) | payer MEDICARE ==
[2019-07-03] MEDS ORDERED: NITROGLYCERIN SL TABS 0.4 MG TAB SUBLINGUAL STA (18:26)
[2019-07-03] MEDS ORDERED: ASPIRIN 81 MG PO STA (18:26)
[2019-07-03 18:50] LABS: Basophils # (A) 0.2 k/uL (0-0.2); Basophils % (A) 2 %; Eosinophils # (A) 0.3 k/uL (0-0.7); Eosinophils % (A) 4 %; HCT 41.9 % (34.0-46.0); Lymphocytes # (A) 1.3 k/uL (1.0-4.8); Lymphocytes % (A) 17 %; MCH 28.8 pg (25.0-35.0); MCHC 31.1 g/dL (31.0-37.0); MCV 92.5 fL (80.0-100.0); Monocytes # (A) 0.4 k/uL (0-1.0); Monocytes % (A) 5 %; Neutrophils # (A) 5.7 k/uL (1.3-7.7); Neutrophils % (A) 72 %; Platelet Count 230 k/uL (150-450); RBC 4.52 m/uL (3.80-5.40); RDW 14.3 % (11.5-15.5); WBC 7.9 k/uL (3.8-10.6)
[2019-07-03 18:58] LABS: Albumin 3.8 g/dL (3.5-5.0); Calcium 9.2 mg/dL (8.4-10.2); Potassium 4.8 mmol/L (3.5-5.1); Total Bilirubin 0.4 mg/dL (0.2-1.3)
--- NOTE | 2019-07-03 19:07 | XR ---
EXAMINATION TYPE: XR chest 2V DATE OF EXAM: 07/03/2019 COMPARISON: May 04, 2011 HISTORY: Chest pain TECHNIQUE: FINDINGS: There is no heart failure nor confluent pneumonic infiltrate. Heart size is normal. Costoph renic angles are clear. There is extensive surgery in the upper lumbar spine. There are small calcifi ed granulomata at the pulmonary cipriano. There is small linear density in the lingula left upper lobe. IMPRESSION: Mild scarring or subsegmental atelectasis in the lingula unchanged. Normal heart. Poor in spiration.
[2019-07-03 19:14] LABS: Partial Thromboplastin Time 22.8 sec (22.0-30.0); Prothrombin Time 9.9 sec (9.0-12.0)
--- NOTE | 2019-07-03 19:21 | ED ---
General Adult HPI - General Chief complaint: Chest Pain Stated complaint: Chest pain Time Seen by Provider: 07/03/19 18:13 Source: patient Mode of arrival: wheelchair Limitations: no limitations - History of Present Illness Initial comments: 59-year-old female patient presents to the emergency department today for evaluation of chest pain. Patient states that she's been having midepigastric to lower midsternal chest pain radiating into the left side of her chest and into the left side of her neck for the last 3 hours. Patient states with this she is having nausea, mild shortness of breath. Denies any sweats. Patient denies any radiation of the pain through to her back. Patient does have history of coronary artery disease and has one stent which was placed in March of last year. Patient states she does take her medications as instructed. Denies history of smoking. Does have an extensive family history of coronary artery disease. Patient denies any recent rash, fever, chills, diarrhea, constipation, numbness, tingling, dizziness, weakness, hematuria, dysuria, urinary urgency, urinary frequency, headache, visual changes, or any other complaints. - Related Data Home Medications Medication Instructions Recorded Confirmed Albuterol Sulfate [Proair Hfa] 1 - 2 puff INHALATION Q6HR PRN 10/09/14 01/20/18 Calcium Carbonate [Calcium] 600 mg PO HS 10/09/14 01/20/18 DULoxetine HCL [Cymbalta] 60 mg PO DAILY 10/09/14 01/20/18 Ergocalciferol [Vitamin D2 50,000 unit PO TH 10/09/14 01/20/18 (DRISDOL)] Exenatide Microspheres [Bydureon] 2 mg SQ SA 10/09/14 01/20/18 Ezetimibe [Zetia] 10 mg PO DAILY 10/09/14 01/20/18 HYDROcodone/APAP 7.5-325MG [[place] 1 each PO Q8H PRN 10/09/14 01/20/18 7.5-325] Insulin Lispro [humaLOG] 4 units SQ W/BRKFST 10/09/14 01/20/18 Insulin NPH Human Isophane 16 unit SQ HS 10/09/14 01/20/18 [humuLIN N] Lidocaine 5% Patch [Lidoderm 5% 1 patch TOPICAL Q12H PRN 10/09/14 01/20/18 Patch] Montelukast [Singulair] 10 mg PO HS 10/09/14 01/20/18 Nadolol [Corgard] 40 mg PO BID 10/09/14 01/20/18 Pioglitazone [Actos] 15 mg PO DAILY 10/09/14 01/20/18 Ranitidine HCl [Zantac] 150 mg PO BID PRN 10/09/14 01/20/18 metFORMIN HCL [Glucophage] 1,000 mg PO BID 10/09/14 01/20/18 Aspirin [Adult Low Dose Aspirin EC] 81 mg PO DAILY 01/20/18 01/20/18 Furosemide [Lasix] 10 mg PO DAILY 01/20/18 01/20/18 Levothyroxine Sodium [Synthroid] 137 mcg PO DAILY 01/20/18 01/20/18 Ramipril [Altace] 10 mg PO DAILY 01/20/18 01/20/18 Previous Rx's Medication Instructions Recorded Atorvastatin [Lipitor] 40 mg PO DAILY #30 tab 01/23/18 INSULIN ASPART (NovoLOG) [NovoLOG 4 unit SQ AC-BRKFST vial 01/23/18 (formulary)] Nitroglycerin Sl Tabs [Nitrostat] 0.4 mg SUBLINGUAL Q5M PRN #25 tab 01/23/18 Prasugrel [Effient] 10 mg PO DAILY #30 tab 01/23/18 Allergies Allergy/AdvReac Type Severity Reaction Status Date / Time codeine Allergy Nausea & Verified 07/03/19 18:11 Vomiting morphine Allergy Rash/Hives Verified 07/03/19 18:11 Penicillins Allergy Rash/Hives Verified 07/03/19 18:11 Sulfa (Sulfonamide Allergy Rash/Hives Verified 07/03/19 18:11 Antibiotics) Review of Systems ROS Statement: Those systems with pertinent positive or pertinent negative responses have been documented in the HPI. ROS Other: All systems not noted in ROS Statement are negative. 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 Past Anesthesia/Blood Transfusion Reactions: No Reported Reaction Past Psychological History: No Psychological Hx Reported Smoking Status: Never smoker Past Alcohol Use History: None Reported Past Drug Use History: None Reported General Exam Limitations: no limitations General appearance: alert, in no apparent distress, other (Physical well- developed, well-nourished adult female patient in no acute distress. Vital signs upon presentation are temperature 97.6F, pulse 71, respirations 18, blood pressure 145/80, pulse ox 99% on room air.) Eye exam: Present: normal appearance, PERRL, EOMI. Absent: scleral icterus, conjunctival injection, periorbital swelling ENT exam: Present: normal exam, normal oropharynx, mucous membranes moist Respiratory exam: Present: normal lung sounds bilaterally. Absent: respiratory distress, wheezes, rales, rhonchi, stridor Cardiovascular Exam: Present: regular rate, normal rhythm, normal heart sounds. Absent: systolic murmur, diastolic murmur, rubs, gallop, clicks GI/Abdominal exam: Present: soft, tenderness (Midepigastric), normal bowel sounds. Absent: distended, guarding, rebound, rigid Neurological exam: Present: alert, oriented X3, CN II-XII intact Psychiatric exam: Present: normal affect, normal mood Skin exam: Present: warm, dry, intact, normal color. Absent: rash Course Vital Signs 07/03/19 07/03/19 18:09 18:36 Temperature 97.6 F Pulse Rate 71 84 Respiratory 18 16 Rate Blood Pressure 145/80 134/82 O2 Sat by Pulse 99 99 Oximetry EKG Findings - EKG Comments: EKG Findings:: EKG obtained at 1818 shows normal sinus rhythm with a ventricular rate of 67, MS interval 180, QR zoroastrian 88, QT 394, QTC 416. There is no evidence of ST elevation or depression. Medical Decision Making - Medical Decision Making 59-year-old female patient presents to the emergency department today for evaluation of lower substernal chest pain radiating into the left side of her chest and into the left side of her neck. Lungs are clear to auscultation with good air movement patient has a mild midepigastric tenderness. EKG showed no evidence for ischemia. Labs reviewed and did reveal normal troponin. She had mildly elevated lipase. Given patient's cardiac history we will admit for serial troponins and evaluation by cardiology in the morning. We'll also repeat her lipase in the morning. I did discuss findings and results with the patient. She is agreeable with this plan. - Lab Data Result diagrams: 07/03/19 18:39 07/03/19 18:39 Lab Results 07/03/19 07/03/19 07/03/19 Range/Units 18:39 18:39 18:39 WBC 7.9 (3.8-10.6) k/uL RBC 4.52 (3.80-5.40) m/uL Hgb 13.0 (11.4-16.0) gm/dL Hct 41.9 (34.0-46.0) % MCV 92.5 (80.0-100.0) fL MCH 28.8 (25.0-35.0) pg MCHC 31.1 (31.0-37.0) g/dL RDW 14.3 (11.5-15.5) % Plt Count 230 (150-450) k/uL Neutrophils % 72 % Lymphocytes % 17 % Monocytes % 5 % Eosinophils % 4 % Basophils % 2 % Neutrophils # 5.7 (1.3-7.7) k/uL Lymphocytes # 1.3 (1.0-4.8) k/uL Monocytes # 0.4 (0-1.0) k/uL Eosinophils # 0.3 (0-0.7) k/uL Basophils # 0.2 (0-0.2) k/uL PT 9.9 (9.0-12.0) sec INR 1.0 (<1.2) APTT 22.8 (22.0-30.0) sec Sodium 139 (137-145) mmol/L Potassium 4.8 (3.5-5.1) mmol/L Chloride 104 (98-107) mmol/L Carbon Dioxide 26 (22-30) mmol/L Anion Gap 9 mmol/L BUN 30 H (7-17) mg/dL Creatinine 1.20 H (0.52-1.04) mg/dL Est GFR (CKD-EPI)AfAm 57 (>60 ml/min/1.73 sqM) Est GFR (CKD-EPI)NonAf 49 (>60 ml/min/1.73 sqM) Glucose 157 H (74-99) mg/dL Calcium 9.2 (8.4-10.2) mg/dL Magnesium 2.0 (1.6-2.3) mg/dL Total Bilirubin 0.4 (0.2-1.3) mg/dL AST 23 (14-36) U/L ALT 16 (4-34) U/L Alkaline Phosphatase 96 (38-126) U/L Troponin I (0.000-0.034) ng/mL Total Protein 7.0 (6.3-8.2) g/dL Albumin 3.8 (3.5-5.0) g/dL Lipase 473 H (23-300) U/L 07/03/19 Range/Units 18:39 WBC (3.8-10.6) k/uL RBC (3.80-5.40) m/uL Hgb (11.4-16.0) gm/dL Hct (34.0-46.0) % MCV (80.0-100.0) fL MCH (25.0-35.0) pg MCHC (31.0-37.0) g/dL RDW (11.5-15.5) % Plt Count (150-450) k/uL Neutrophils % % Lymphocytes % % Monocytes % % Eosinophils % % Basophils % % Neutrophils # (1.3-7.7) k/uL Lymphocytes # (1.0-4.8) k/uL Monocytes # (0-1.0) k/uL Eosinophils # (0-0.7) k/uL Basophils # (0-0.2) k/uL PT (9.0-12.0) sec INR (<1.2) APTT (22.0-30.0) sec Sodium (137-145) mmol/L Potassium (3.5-5.1) mmol/L Chloride (98-107) mmol/L Carbon Dioxide (22-30) mmol/L Anion Gap mmol/L BUN (7-17) mg/dL Creatinine (0.52-1.04) mg/dL Est GFR (CKD-EPI)AfAm (>60 ml/min/1.73 sqM) Est GFR (CKD-EPI)NonAf (>60 ml/min/1.73 sqM) Glucose (74-99) mg/dL Calcium (8.4-10.2) mg/dL Magnesium (1.6-2.3) mg/dL Total Bilirubin (0.2-1.3) mg/dL AST (14-36) U/L ALT (4-34) U/L Alkaline Phosphatase (38-126) U/L Troponin I <0.012 (0.000-0.034) ng/mL Total Protein (6.3-8.2) g/dL Albumin (3.5-5.0) g/dL Lipase (23-300) U/L - Radiology Data Radiology results: report reviewed, image reviewed Two-view x-ray of the chest is obtained. Report was reviewed in its entirety. Impression by Dr. Valenzuela shows mild scarring or subsegmental atelectasis in the lingula unchanged. Normal heart. Poor inspiration. Disposition Clinical Impression: Chest pain Disposition: ADMITTED IP TO THIS [facility] Condition: Serious Referrals: John Hamilton MD [Primary Care Provider] - 1-2 days Decision to Admit Reason: Admit from EC Decision Date: 07/03/19 Decision Time: 19:55
[2019-07-03] MEDS ORDERED: NALOXONE 0.4 MG/ML 1 ML VIAL IV PRN (19:52)
[2019-07-03] MEDS ORDERED: NITROGLYCERIN OINT 1 INCH/GM PACKET TOPICAL STA (20:32)
[2019-07-03] MEDS ORDERED: HYDROmorphone 0.5 MG/0.5 ML SYRINGE IVP PRN (20:32)
[2019-07-03 20:55] VITALS: RESP 18
[2019-07-03 22:36] LABS: Glucose,Whole Blood 137 mg/dL (75-99)
[2019-07-03] MEDS ORDERED: ALBUTEROL NEBULIZED 2.5 MG/3 ML INHALATION PRN (23:44)
[2019-07-03] MEDS ORDERED: NITROGLYCERIN SL TABS 0.4 MG TAB SUBLINGUAL PRN (23:44)
[2019-07-03] MEDS ORDERED: BACLOFEN 10 MG TAB PO PRN (23:44)
[2019-07-04] MEDS: CEPHALEXIN 250 MG CAP PO SCH ×2 (01:24→20:39)
[2019-07-04] MEDS: MONTELUKAST 10 MG TAB PO SCH ×2 (01:24→20:37)
[2019-07-04] MEDS: metFORMIN 500 MG TAB PO SCH ×3 (01:24→16:57)
[2019-07-04] MEDS: NADOLOL 20 MG TAB PO SCH ×3 (01:24→20:37)
[2019-07-04] MEDS: ATORVASTATIN 40 MG TAB PO SCH ×2 (01:24→20:37)
[2019-07-04] MEDS: LEVOTHYROXINE 112 MCG TAB PO SCH (06:16)
[2019-07-04] MEDS: NITROGLYCERIN OINT 1 INCH/GM PACKET TOPICAL SCH ×4 (06:16→23:29)
[2019-07-04] MEDS: LIDOCAINE 5% PATCH TOPICAL SCH (06:16)
[2019-07-04] MEDS: HYDROcodone/APAP 7.5-325MG 1 EACH TAB PO PRN ×3 (06:24→19:32)
[2019-07-04] MEDS ORDERED: LIDOCAINE 5% PATCH TOPICAL PRN (06:30)
[2019-07-04 07:04] LABS: Glucose,Whole Blood 167 mg/dL (75-99)
[2019-07-04] MEDS: INSULIN ASPART (NovoLOG) 100 UNIT/ML VIAL SQ SCH ×5 (11:23→21:00)
[2019-07-04] MEDS: NON FORMULARY DRUG (Dapagliflozin Propanediol [Farxiga] 10 MG) PO SCH (11:27)
[2019-07-04] MEDS: FAMOTIDINE 20 MG TAB PO SCH (11:27)
[2019-07-04] MEDS: LISINOPRIL 20 MG TAB PO SCH (11:28)
[2019-07-04] MEDS: PIOGLITAZONE 15 MG TAB PO SCH (11:28)
[2019-07-04] MEDS: EZETIMIBE 10 MG TAB PO SCH (11:28)
[2019-07-04] MEDS: DULoxetine HCL 60 MG CAPSULE.DR PO SCH (11:28)
[2019-07-04] MEDS: ASPIRIN 81 MG PO SCH (11:28)
[2019-07-04] MEDS: FUROSEMIDE 10 MG TAB PO SCH (11:29)
--- NOTE | 2019-07-04 11:33 | US ---
EXAMINATION TYPE: US abdomen complete DATE OF EXAM: 07/04/2019 COMPARISON: NONE CLINICAL HISTORY: epigastric pain. EXAM MEASUREMENTS: Liver Length: 16.2 cm Gallbladder Wall: 0.1 cm CBD: 0.5 cm Spleen: 11.8 cm Right Kidney: 10.2 x 5.5 x 5.2 cm Left Kidney: 9.5 x 4.3 x 4.8 cm Patient of very large body habitus limiting exam technically difficult study. Pancreas: Obscured by bowel gas Liver: calcification noted, limited visualization Gallbladder: wnl, as seen somewhat limited views Evidence for sonographic Pink's sign: no CBD: wnl Spleen: wnl Right Kidney: possible cyst vs mass, due to technical difficulties unable to well visualize either ki dney Left Kidney: wnl Upper IVC: wnl Abd Aorta: Obscured by overlying bowel gas The pancreas is obscured. The liver is normal in size without biliary dilatation. The technologist comments on hepatic calcific ations which are not well demonstrated. The gallbladder is normal without evidence cholelithiasis. The gallbladder wall measures 1 mm. This c ommon hepatic duct measures 5 mm. There is no sonographic Pink's sign. The spleen is normal in size. The left kidney is normal. There is an exophytic mass arising from the mid polar region of the right kidney measuring 1.6 cm. This does not meet the ultrasound criteria of a simple cyst. The abdominal aorta is obscured. The IVC is unremarkable. IMPRESSION: 1. VERY LIMITED EXAMINATION. 2. QUESTIONABLE HEPATIC CALCIFICATIONS. 3. MASS ARISING FROM THE RIGHT KIDNEY WARRANTS FURTHER INVESTIGATION. A CT SCAN OF THE ABDOMEN WOULD BE SUGGESTED.
[2019-07-04 12:04] LABS: Glucose,Whole Blood 156 mg/dL (75-99)
--- NOTE | 2019-07-04 12:07 | P.CRDCN ---
History of Present Illness Consult date: 07/04/19 Requesting physician: John Hamilton Consult reason: chest pain (Chest pain with shortness of breath) History of present illness: This is a pleasant 59-year-old female patient of Dr. Romo with a past medical history of coronary artery disease status post stenting mid LAD on 01/22/2018, hypertension, hyperlipidemia, diabetes who presented to the emergency room with the symptoms of chest discomfort. Patient was in her usual state up until yesterday. Since yesterday evening she has been having sharp mid epigastric to lower midsternal chest pain radiating to her neck associated with nausea, mild shortness of breath. The pain lasted almost 3 hours prior to the ER arrival though she did received sublingual nitroglycerin, and she felt most of her chest pain relieved. She denied any dizziness or diaphoresis along with it, and her pain is not exertional. Her vital signs were stable she was afebrile. Patient does have history of CAD with a stent from 2018, from talking to her this chest pain is different in nature from previous chest pain and much severe this time. Patient's blood tests indicated normal cardiac enzymes 3, BUN 30, creatinine 1.2. Incidentally patient has slightly elevated lipase 473. She is a nonsmoker and nonalcoholic, no prior history of pancreatitis. She denied vomiting diarrhea constipation, denied urgency frequency dysuria. Denied any headache or visual changes. Patient's previous echocardiogram showed preserved left ventricle systolic function with EF 55- 60%. Mild LVH. Chest x-ray showed mild scarring or subsegmental atelectasis in the lingula unchanged. Normal heart. Poor inspiration. Patient was seen and examined on consultation. She is resting comfortably in bed. she is chest pain-free at this time. Denied any shortness of breath, osteopenia or PND. Denied dizziness. Denied abdominal pain. 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 bunion surgery, bilat cataract surgery Past Anesthesia/Blood Transfusion Reactions: No Reported Reaction Date of Last Stent Placement:: 2017 Past Psychological History: No Psychological Hx Reported Smoking Status: Never smoker Past Alcohol Use History: None Reported Past Drug Use History: None Reported - Past Family History Father Family Medical History: Coronary Artery Disease (CAD), Diabetes Mellitus, Hyperlipidemia, Hypertension Additional Family Medical History / Comment(s): cabg Mother Family Medical History: Cancer, Coronary Artery Disease (CAD), Diabetes Mellitus, Hyperlipidemia, Hypertension Additional Family Medical History / Comment(s): cabg, lung and colon cancer Brother(s) Family Medical History: Cancer, COPD, Coronary Artery Disease (CAD), Diabetes Mellitus, Hyperlipidemia, Hypertension Additional Family Medical History / Comment(s): cabg, lung cancer Sister(s) Family Medical History: Coronary Artery Disease (CAD), Diabetes Mellitus, Hyperlipidemia, Hypertension Daughter(s) Family Medical History: Thyroid Disorder Additional Family Medical History / Comment(s): hashimotos, obesity Medications and Allergies Home Medications Medication Instructions Recorded Confirmed Type Albuterol Sulfate [Proair Hfa] 2 puff INHALATION Q6HR PRN 10/09/14 07/03/19 History DULoxetine HCL [Cymbalta] 60 mg PO DAILY 10/09/14 07/03/19 History Exenatide Microspheres [Bydureon] 2 mg SQ FR 10/09/14 07/03/19 History Ezetimibe [Zetia] 10 mg PO DAILY 10/09/14 07/03/19 History HYDROcodone/APAP 7.5-325MG [[place] 1 each PO Q8H PRN 10/09/14 07/03/19 History 7.5-325] Insulin Lispro [humaLOG] 6 units SQ AC-TID 10/09/14 07/03/19 History Lidocaine 5% Patch [Lidoderm 5% 2 patch TOPICAL Q12H PRN 10/09/14 07/03/19 History Patch] Montelukast [Singulair] 10 mg PO HS 10/09/14 07/03/19 History Nadolol [Corgard] 40 mg PO BID 10/09/14 07/03/19 History Pioglitazone [Actos] 15 mg PO DAILY 10/09/14 07/03/19 History Aspirin [Adult Low Dose Aspirin EC] 81 mg PO DAILY 01/20/18 07/03/19 History Furosemide [Lasix] 20 mg PO DAILY 01/20/18 07/03/19 History Levothyroxine Sodium [Synthroid] 112 mcg PO DAILY 01/20/18 07/03/19 History Nitroglycerin Sl Tabs [Nitrostat] 0.4 mg SUBLINGUAL Q5M PRN #25 tab 01/23/18 07/03/19 Rx Atorvastatin [Lipitor] 40 mg PO HS 07/03/19 07/03/19 History Baclofen 10 mg PO TID PRN 07/03/19 07/03/19 History Calcium Carb/Vitamin D3/Vit K1 1 tab PO DAILY 07/03/19 07/03/19 History [Citracal Soft Chew] Cephalexin [Keflex] 250 mg PO HS 07/03/19 07/03/19 History Dapagliflozin Propanediol [Farxiga] 10 mg PO DAILY 07/03/19 07/03/19 History Ergocalciferol (Vitamin D2) 50,000 unit PO FR 07/03/19 07/03/19 History [Drisdol] Famotidine [Pepcid] 20 mg PO DAILY 07/03/19 07/03/19 History Ramipril 10 mg PO DAILY 07/03/19 07/03/19 History metFORMIN HCL 500 mg PO BID 07/03/19 07/03/19 History Allergies Allergy/AdvReac Type Severity Reaction Status Date / Time codeine Allergy Nausea & Verified 07/03/19 23:17 Vomiting morphine Allergy Rash/Hives Verified 07/03/19 23:17 Penicillins Allergy Rash/Hives Verified 07/03/19 23:17 Sulfa (Sulfonamide Allergy Rash/Hives Verified 07/03/19 23:17 Antibiotics) Physical Exam Vitals: Vital Signs Temp Pulse Pulse Resp BP BP Pulse Ox 07/04/19 07:53 98.4 F 83 18 112/69 96 07/04/19 07:45 95 07/04/19 04:00 98.2 F 71 18 116/71 96 01/31/20 22:16 98.3 F 80 18 125/88 100 07/03/19 20:53 71 18 133/70 100 07/03/19 18:36 84 16 134/82 99 07/03/19 18:09 97.6 F 71 18 145/80 99 Intake and Output 07/03/19 07/04/19 07/04/19 22:59 06:59 14:59 Other: Voiding Method Toilet Toilet Toilet # Voids 1 Weight 97.069 kg 97.664 kg PHYSICAL EXAMINATION: GENERAL APPEARANCE: sitting up in bed, no acute distress. HEENT: pupils equal conjunctiva. NECK; supple, no JVD. RESPIRATORY: Lung sounds are clear to auscultation no wheezing or crackles Heart: Regular rate and rhythm normal S1-S2, no murmur or rub Extremities: No significant edema peripheral pulses positive GI: abdomen soft, nontender, positive bowel sounds. PSYCHIATRIC: alert and oriented ?-3. Affect normal. - Constitutional General appearance: average body habitus - EENT Eyes: PERRLA - Cardiovascular Rhythm: regular - Gastrointestinal General gastrointestinal: normal bowel sounds Results 07/03/19 18:39 07/03/19 18:39 Cardiac Enzymes 07/03/19 07/03/19 07/04/19 Range/Units 18:39 18:39 01:03 AST 23 (14-36) U/L Troponin I <0.012 <0.012 (0.000-0.034) ng/mL 07/04/19 Range/Units 06:56 AST (14-36) U/L Troponin I <0.012 (0.000-0.034) ng/mL Coagulation 07/03/19 Range/Units 18:39 PT 9.9 (9.0-12.0) sec APTT 22.8 (22.0-30.0) sec CBC 07/03/19 Range/Units 18:39 WBC 7.9 (3.8-10.6) k/uL RBC 4.52 (3.80-5.40) m/uL Hgb 13.0 (11.4-16.0) gm/dL Hct 41.9 (34.0-46.0) % Plt Count 230 (150-450) k/uL Comprehensive Metabolic Panel 07/03/19 Range/Units 18:39 Sodium 139 (137-145) mmol/L Potassium 4.8 (3.5-5.1) mmol/L Chloride 104 (98-107) mmol/L Carbon Dioxide 26 (22-30) mmol/L BUN 30 H (7-17) mg/dL Creatinine 1.20 H (0.52-1.04) mg/dL Glucose 157 H (74-99) mg/dL Calcium 9.2 (8.4-10.2) mg/dL AST 23 (14-36) U/L ALT 16 (4-34) U/L Alkaline Phosphatase 96 (38-126) U/L Total Protein 7.0 (6.3-8.2) g/dL Albumin 3.8 (3.5-5.0) g/dL Current Medications Generic Name Dose Route Start Last Admin Trade Name Freq PRN Reason Stop Dose Admin Hydrocodone Bitart/Acetaminophen 1 each 07/03/19 23:44 07/04/19 06:24 [place] 7.5-325 PO 1 each Q8H PRN Administration Pain Albuterol Sulfate 2.5 mg 07/03/19 23:44 Ventolin Nebulized INHALATION Q6HR PRN Shortness Of Breath Aspirin 81 mg 07/04/19 09:00 07/04/19 11:28 Aspirin PO 81 mg DAILY VANESA Administration Atorvastatin Calcium 40 mg 07/04/19 01:00 07/04/19 01:24 Lipitor PO 40 mg HS VANESA Administration Baclofen 10 mg 07/03/19 23:44 Lioresal PO TID PRN Spasms Cephalexin 250 mg 07/04/19 01:00 07/04/19 01:24 Keflex PO 250 mg HS VANESA Administration Duloxetine HCl 60 mg 07/04/19 09:00 07/04/19 11:28 Cymbalta PO 60 mg DAILY VANESA Administration Ezetimibe 10 mg 07/04/19 09:00 07/04/19 11:28 Zetia PO 10 mg DAILY VANESA Administration Ergocalciferol 50,000 unit 07/10/19 09:00 Vitamin D2 PO FR VANESA Famotidine 20 mg 07/04/19 09:00 07/04/19 11:27 Pepcid PO 20 mg DAILY VANESA Administration Furosemide 20 mg 07/04/19 09:00 07/04/19 11:29 Lasix PO 20 mg DAILY [facility] Administration Hydromorphone HCl 0.5 mg 07/03/19 20:32 Dilaudid IVP Q3HR PRN Pain Insulin Aspart 0 unit 07/04/19 07:30 07/04/19 11:23 Novolog SQ Not Given ACHS [facility] Protocol Levothyroxine Sodium 112 mcg 07/04/19 06:30 07/04/19 06:16 Synthroid PO 112 mcg DAILY@0630 VANESA Administration Lidocaine 2 patch 07/04/19 06:30 07/04/19 06:16 Lidoderm TOPICAL 2 patch DAILY@0630 VANESA Administration Lisinopril 40 mg 07/04/19 09:00 07/04/19 11:28 Zestril PO 40 mg DAILY [facility] Administration Metformin HCl 500 mg 07/04/19 01:00 07/04/19 11:28 Glucophage PO 500 mg BID-W/MEALS VANESA Administration Montelukast Sodium 10 mg 07/04/19 01:00 07/04/19 01:24 Singulair PO 10 mg HS [facility] Administration Nadolol 40 mg 07/04/19 01:00 07/04/19 11:29 Corgard PO 40 mg BID [facility] Administration Naloxone HCl 0.2 mg 07/03/19 19:52 Narcan IV Q2M PRN Opioid Reversal Nitroglycerin 0.5 inch 07/04/19 06:00 07/04/19 06:16 Nitro-Bid Oint TOPICAL 0.5 inch Q6HR [facility] Administration Nitroglycerin 0.4 mg 07/03/19 23:44 Nitrostat SUBLINGUAL Q5M PRN Chest Pain Non-Formulary Medication 10 mg 07/04/19 09:00 07/04/19 11:27 Dapagliflozin Propanediol [Farxiga] PO Not Given DAILY [facility] Non-Formulary Medication 2 mg 07/10/19 09:00 Exenatide Microspheres [Bydureon] SQ FR [facility] Pioglitazone HCl 15 mg 07/04/19 09:00 07/04/19 11:28 Actos PO 15 mg DAILY [facility] Administration Intake and Output 07/03/19 07/04/19 07/04/19 22:59 06:59 14:59 Other: Voiding Method Toilet Toilet Toilet # Voids 1 Weight 97.069 kg 97.664 kg 07/03/19 18:39 07/03/19 18:39 - Imaging and Cardiology Echo: pending - EKG Interpretation EKG: sinus rhythm Assessment and Plan Assessment: Assessment: # chest discomfort with a prior history of CAD and stent concern for unstable angina rule out cardiac origin # History of CAD stent to LAD # Elevated lipase, possible pancreatitis # Hypertension # Dyslipidemia #Type II DM Plan: 59-year-old female patient admitted with chest discomfort, with a previous history of CAD and stent to mid LAD. She has normal cardiac enzymes 3, EKG showed sinus rhythm no significant ST or T-wave abnormalities. Patient's chest pain got relieved from nitroglycerin as well as aspirin. Incidental finding of elevated lipase ruling out pancreatitis by ultrasound abdomen. We will repeat an echocardiogram to assess LV size and wall motion. Resume home cardiac medications. We'll continue monitor patient and to make further recommendations. The impression and plan of care has been dictated as directed. Dr. Romo I performed a history and examination of this patient, discussed the same with the dictator. I agree with the dictator's note ,documented as a scribe. Any additional findings or plans will be noted.
--- NOTE | 2019-07-04 13:18 | P.HPIM ---
History of Present Illness H&P Date: 07/04/19 This is a pleasant 59-year-old female who sees Dr. Hamilton, Dr. 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 Patient took her bidoran yesterday for diabetes this is something she has done previously. Approximately a later that afternoon patient experienced severe chest pain initiating in the epigastric area. The pain then radiated to the left shoulder. This is consistent with the previous pain she had prior to stenting 2 years ago. The pain was associated with nausea and mild shortness of breath. The pain lasted approximately 3 hours prior to the ER arrival she received sublingual nitroglycerin and felt that the chest pain was relieved. Patient's cardiac enzymes were negative 3, BUN was 30, creatinine 1.2, her lipase was slightly elevated at 473. Today her lipase is 449. Patient is a nonsmoker and nonalcoholic. No history of pancreatitis. Patient denied any vomiting diarrhea constipation. Patient's past medical history is significant for coronary artery disease status post stenting of mid LAD on 01/22/2018, hypertension, hyperlipidemia, diabetes previous hemoglobin A1c was 7.6. At this time patient is resting comfortably in bed without any chest pain or difficulty breathing. Christiane BC 7.9, hemoglobin 13.0, potassium 4.8, blood glucose 156. Patient has been afebrile and vital signs have been unremarkable. Chest x-ray shows mild scarring or subsegmental atelectasis in the lingula unchanged. Normal heart poor inspiration. Ultrasound shows questionable hepatic calcification, mass arising from the right kidney warrants further investigation possible computed tomography scan of the abdomen would be suggested. Review of Systems Review Of Systems: Constitutional: No fever, no chills, no night sweats. No weight change. No weakness, fatigue or lethargy. No daytime sleepiness. EENT: No headache. No blurred vision or double vision, no loss of vision. No loss of Hearing, no ringing in the ears, no dizziness. No nasal drainage or congestion. No epistaxis. No sore throat. Lungs: No shortness of breath, cough, no sputum production. No wheezing. Cardiovascular: Resolved chest pain, no lower extremity edema. No palpitations. No paroxysmal nocturnal dyspnea. No orthopnea. No lightheadedness or di zziness. No syncopal episodes. Abdominal: Reports abdominal discomfort epigastric. No nausea, vomiting. no diarrhea. No constipation. No bloody or tarry stools. no loss of appetite. Genitourinary: No dysuria, increased frequency, urgency. No urinary retention. Musculoskeletal: No myalgias. No muscle weakness, no gait dysfunction, no frequent falls. No back pain. No neck pain. Integumentary: No wounds, no lesions. No rash or pruritus. No unusual bruising. No change in hair or nails. Neurologic: No aphasia. No facial droop. No change in mentation. No head injury. No headache. No paralysis. No paresthesia. Psychiatric: No depression. No anxiety. No mood swings. Endocrine: No abnormal blood sugars. No weight change. No excessive sweating or thirst. 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 bunion surgery, bilat cataract surgery Past Anesthesia/Blood Transfusion Reactions: No Reported Reaction Date of Last Stent Placement:: 2017 Past Psychological History: No Psychological Hx Reported Smoking Status: Never smoker Past Alcohol Use History: None Reported Past Drug Use History: None Reported - Past Family History Father Family Medical History: Coronary Artery Disease (CAD), Diabetes Mellitus, Hyperlipidemia, Hypertension Additional Family Medical History / Comment(s): cabg, at 92 Mother Family Medical History: Cancer, Coronary Artery Disease (CAD), Diabetes Mellitus, Hyperlipidemia, Hypertension Additional Family Medical History / Comment(s): cabg, lung and colon cancer, at 85 Brother(s) Family Medical History: Blood Disorder (hemochromatosis), Cancer, COPD, Coronary Artery Disease (CAD), Diabetes Mellitus, Hyperlipidemia, Hypertension Additional Family Medical History / Comment(s): cabg, lung cancer Sister(s) Family Medical History: Blood Disorder (hemochromatosis), Coronary Artery Disease (CAD), Diabetes Mellitus, Hyperlipidemia, Hypertension Daughter(s) Family Medical History: Thyroid Disorder (Crystal's) Additional Family Medical History / Comment(s): hashimotos, obesity, 2 daughters, protein C deficiency Medications and Allergies Home Medications Medication Instructions Recorded Confirmed Type Albuterol Sulfate [Proair Hfa] 2 puff INHALATION Q6HR PRN 10/09/14 07/03/19 History DULoxetine HCL [Cymbalta] 60 mg PO DAILY 10/09/14 07/03/19 History Exenatide Microspheres [Bydureon] 2 mg SQ FR 10/09/14 07/03/19 History Ezetimibe [Zetia] 10 mg PO DAILY 10/09/14 07/03/19 History HYDROcodone/APAP 7.5-325MG [[place] 1 each PO Q8H PRN 10/09/14 07/03/19 History 7.5-325] Insulin Lispro [humaLOG] 6 units SQ AC-TID 10/09/14 07/03/19 History Lidocaine 5% Patch [Lidoderm 5% 2 patch TOPICAL Q12H PRN 10/09/14 07/03/19 History Patch] Montelukast [Singulair] 10 mg PO HS 10/09/14 07/03/19 History Nadolol [Corgard] 40 mg PO BID 10/09/14 07/03/19 History Pioglitazone [Actos] 15 mg PO DAILY 10/09/14 07/03/19 History Aspirin [Adult Low Dose Aspirin EC] 81 mg PO DAILY 01/20/18 07/03/19 History Furosemide [Lasix] 20 mg PO DAILY 01/20/18 07/03/19 History Levothyroxine Sodium [Synthroid] 112 mcg PO DAILY 01/20/18 07/03/19 History Nitroglycerin Sl Tabs [Nitrostat] 0.4 mg SUBLINGUAL Q5M PRN #25 tab 01/23/18 07/03/19 Rx Atorvastatin [Lipitor] 40 mg PO HS 07/03/19 07/03/19 History Baclofen 10 mg PO TID PRN 07/03/19 07/03/19 History Calcium Carb/Vitamin D3/Vit K1 1 tab PO DAILY 07/03/19 07/03/19 History [Citracal Soft Chew] Cephalexin [Keflex] 250 mg PO HS 07/03/19 07/03/19 History Dapagliflozin Propanediol [Farxiga] 10 mg PO DAILY 07/03/19 07/03/19 History Ergocalciferol (Vitamin D2) 50,000 unit PO FR 07/03/19 07/03/19 History [Drisdol] Famotidine [Pepcid] 20 mg PO DAILY 07/03/19 07/03/19 History Ramipril 10 mg PO DAILY 07/03/19 07/03/19 History metFORMIN HCL 500 mg PO BID 07/03/19 07/03/19 History Allergies Allergy/AdvReac Type Severity Reaction Status Date / Time codeine Allergy Nausea & Verified 07/03/19 23:17 Vomiting morphine Allergy Rash/Hives Verified 07/03/19 23:17 Penicillins Allergy Rash/Hives Verified 07/03/19 23:17 Sulfa (Sulfonamide Allergy Rash/Hives Verified 07/03/19 23:17 Antibiotics) Physical Exam Vitals: Vital Signs Temp Pulse Pulse Resp BP BP Pulse Ox 07/04/19 12:00 97.7 F 71 18 112/79 96 07/04/19 07:53 98.4 F 83 18 112/69 96 07/04/19 07:45 95 07/04/19 04:00 98.2 F 71 18 116/71 96 07/03/19 22:16 98.3 F 80 18 125/88 100 07/03/19 20:53 71 18 133/70 100 07/03/19 18:36 84 16 134/82 99 07/03/19 18:09 97.6 F 71 18 145/80 99 Intake and Output 07/03/19 07/04/19 07/04/19 22:59 06:59 14:59 Other: Voiding Method Toilet Toilet Toilet # Voids 1 1 Weight 97.069 kg 97.664 kg General Appearance: Alert, cooperative, no distress, appears stated age. Neck HEENT: Supple, no lymphadenopathy, no thyroid enlargement, no carotid bruits. Lungs: Clear to auscultation without crackles or wheezes no rhonchi, no deformity. Chest Wall: Chest wall normal expansion with deep inspiration no tenderness and no deformity was found on exam, no costochondral pain or discomfort. Heart: Regular rate and rhythm, S1, S2 normal, no murmur, rub or gallop. Back: Symmetric, no curvature, ROM normal, no CVA tenderness. Abdomen: Soft, epigastric tenderness, no rebound or rigidity, no hepatosplenomegaly. Extremities: Extremities normal, atraumatic, no cyanosis or edema. Pulses: 2+ and symmetric. Skin: Skin color, texture, tugor normal, no rashes or lesions. Neurologic: Alert oriented x3 cranial nerves II through XII intact, no motor deficit, no abnormal balance or gait Results CBC & Chem 7: 07/03/19 18:39 07/03/19 18:39 Labs: Abnormal Lab Results - Last 24 Hours (Table) 07/03/19 07/03/19 07/04/19 Range/Units 18:39 22:35 06:53 BUN 30 H (7-17) mg/dL Creatinine 1.20 H (0.52-1.04) mg/dL Glucose 157 H (74-99) mg/dL POC Glucose (mg/dL) 137 H (75-99) mg/dL Lipase 473 H 449 H (23-300) U/L 07/04/19 07/04/19 Range/Units 07:02 12:02 BUN (7-17) mg/dL Creatinine (0.52-1.04) mg/dL Glucose (74-99) mg/dL POC Glucose (mg/dL) 167 H 156 H (75-99) mg/dL Lipase (23-300) U/L Thrombosis Risk Factor Assmnt - Choose All That Apply Any of the Below Risk Factors Present?: Yes Each Factor Represents 1 point: Age 41-60 years, Hx of IBD Other Risk Factors: No Other congenital or acquired thrombophilia - If yes, enter type in comment: No Thrombosis Risk Factor Assessment Total Risk Factor Score: 2 Thrombosis Risk Factor Assessment Level: Low Risk Assessment and Plan Plan: 1. Chest discomfort with prior history of CAD and stents. Obtain ultrasound of the abdomen to rule out pancreatitis and/or gallstones. May need CAT scan of abdomen. Consult cardiology. Repeat lipase in the morning 2. Epigastric pain as noted above 3. Elevated lipase may be related to bydureon. Ultrasound of abdomen 4. Hypertension. Lasix 20 mg by mouth daily, lisinopril 40 mg by mouth daily Corgard 40 mg by mouth twice a day 5. Diabetes mellitus type 2. farxiga 10 mg by mouth daily, insulin sliding scale, continue metformin 500 mg by mouth twice a day, actos 15mg 6. Hyperlipidemia Lipitor 40 mg by mouth at bedtime, that he attend milligrams by mouth 7. Osteoarthritis. Baclofen 10 mg by mouth 3 times a day, [place] 7.5 one tablet every 8 hours as needed for pain 8. Chronic UTI. Keflex 250 mg by mouth at bedtime 9. Diabetic neuropathy. Cymbalta 60 mg by mouth daily 10. Hypothyroidism. Levothyroxine 112 mcg 7. DVT prophylaxis. Pneumatic compression sleeves 8. GI prophylaxis. Pepcid 20 mg by mouth Status: Full code Discharge disposition: Home Impression and plan of care have been directed as dictated by the signing physician. Anuradha Nunez nurse practitioner acting as scribe for signing physician.
--- NOTE | 2019-07-04 15:32 | ECHOF ---
Referral Reason:chest pain MEASUREMENTS -------- HEIGHT: 182.9 cm WEIGHT: 97.5 kg BP: RVIDd: 2.5 cm (< 3.3) IVSd: 1.4 cm (0.6 - 1.1) LVIDd: 2.7 cm (3.9 - 5.3) LVPWd: 1.6 cm (0.6 - 1.1) IVSs: 1.7 cm LVIDs: 1.8 cm LVPWs: 1.7 cm Ao Diam: 3.1 cm (2.0 - 3.7) AV Cusp: 2.2 cm (1.5 - 2.6) LA Diam: 3.6 cm (2.7 - 3.8) MV EXCURSION: 13.189 mm (> 18.000) MV EF SLOPE: 22 mm/s (70 - 150) EPSS: 0.7 cm MV E Cedrick: 0.33 m/s MV DecT: 314 ms MV A [place]: 0.53 m/s MV E/A Ratio: 0.62 AR PHT: 772 ms RAP: 5.00 mmHg RVSP: 22.70 mmHg FINDINGS -------- Sinus rhythm. This was a technically difficult study with suboptimal views. The left ventricular size is normal. There is moderate concentric left ventricular hypertrophy. O verall left ventricular systolic function is low-normal with, an EF between 50 - 55 %. Mid The right ventricle is normal in size. The left atrial size is normal. The right atrial size is normal. xx ml of Lumason was utilized for enhancement of images. The aortic valve is trileaflet and appears structurally normal. There is mild aortic regurgitation. The mitral valve is normal. Mild mitral regurgitation is present. The tricuspid valve appears structurally normal. Mild tricuspid regurgitation present. Right vent ricular systolic pressure is normal at < 35 mmHg. There is no pulmonic regurgitation present. The aortic root size is normal. IVC Not well visulized. There is no pericardial effusion. CONCLUSIONS -------- 1. Sinus rhythm. 2. This was a technically difficult study with suboptimal views. 3. The left ventricular size is normal. 4. There is moderate concentric left ventricular hypertrophy. 5. Overall left ventricular systolic function is low-normal with, an EF between 50 - 55 %. 6. The right ventricle is normal in size. 7. The left atrial size is normal. 8. The right atrial size is normal. 9. xx ml of Lumason was utilized for enhancement of images. 10. The aortic valve is trileaflet and appears structurally normal. 11. There is mild aortic regurgitation. 12. The mitral valve is normal. 13. Mild mitral regurgitation is present. 14. The tricuspid valve appears structurally normal. 15. Mild tricuspid regurgitation present. 16. Right ventricular systolic pressure is normal at < 35 mmHg. 17. There is no pulmonic regurgitation present. 18. The aortic root size is normal. 19. IVC Not well visulized. 20. There is no pericardial effusion. GROUP FITNESS INSTRUCTOR: Abi Hernandez RDCS
[2019-07-04 16:45] LABS: Glucose,Whole Blood 151 mg/dL (75-99)
[2019-07-04 20:26] LABS: Glucose,Whole Blood 161 mg/dL (75-99)
[2019-07-05 05:48] LABS: Basophils % (A) 1 %; Eosinophils # (A) 0.2 k/uL (0-0.7); Eosinophils % (A) 2 %; HCT 42.2 % (34.0-46.0); Hypochromasia Slight; Lymphocytes # (A) 1.4 k/uL (1.0-4.8); Lymphocytes % (A) 18 %; MCH 28.4 pg (25.0-35.0); MCHC 30.9 g/dL (31.0-37.0); Mean Platelet Volume 7.9; Monocytes # (A) 0.4 k/uL (0-1.0); Monocytes % (A) 6 %; Neutrophils # (A) 5.4 k/uL (1.3-7.7); Neutrophils % (A) 72 %; Platelet Count 240 k/uL (150-450); RBC 4.58 m/uL (3.80-5.40); RDW 13.9 % (11.5-15.5); WBC 7.6 k/uL (3.8-10.6)
[2019-07-05 06:04] LABS: Potassium 4.6 mmol/L (3.5-5.1)
[2019-07-05] MEDS: NITROGLYCERIN OINT 1 INCH/GM PACKET TOPICAL SCH ×2 (06:25→12:00)
[2019-07-05] MEDS: HYDROcodone/APAP 7.5-325MG 1 EACH TAB PO PRN ×2 (06:28→10:40)
[2019-07-05] MEDS: LEVOTHYROXINE 112 MCG TAB PO SCH (06:28)
[2019-07-05] MEDS: LIDOCAINE 5% PATCH TOPICAL SCH (06:34)
[2019-07-05 06:49] LABS: Glucose,Whole Blood 145 mg/dL (75-99)
--- NOTE | 2019-07-05 08:33 | CT ---
EXAMINATION TYPE: CT abdomen wo con DATE OF EXAM: 07/05/2019 COMPARISON: Previous study dated 04/14/2012. HISTORY: Renal mass CT DLP: 1152 mGycm Automated exposure control for dose reduction was used. TECHNIQUE: Helical acquisition of images was performed from the lung bases through the top of iliac crest to include entire abdomen. CONTRAST: Performed without Oral Contrast and without IV contrast. FINDINGS: There is mild atelectatic change present in the left lingula and right middle lobe. There i s no pleural or pericardial fluid. The heart is not enlarged. Within the abdomen, the liver is enlarged measuring almost 19 cm. There are scattered calcifications throughout the liver likely on the basis of old granulomatous disease. The gallbladder is unremarkabl e. The right adrenal gland is normal. There is a 3 cm left adrenal mass. This is unchanged in size from the previous study. The left kidney appears morphologically normal. There is a tiny 2 to 3 mm calculus in the anterior lo wer pole calyx of the right kidney. There is a 1.4 cm echogenic lesion in the mid polar region of the right kidney. This does not meet the requirements of a simple cyst. It was not seen with certainty o n the previous study. Limited views of the pancreas are unremarkable. There is no significant retroperitoneal adenopathy. There is a moderate dextroscoliosis. There is been susana fixation of the thoracolumbar spine. There is no free fluid and no free air. IMPRESSION: 1. 1.4 CM ECHOGENIC LESION IN THE MID POLAR REGION OF THE RIGHT KIDNEY LIKELY REPRESENTING THE ABNORM AL ULTRASOUND FINDING. THIS IS NOT MEET THE REQUIREMENTS OF A SIMPLE CYST. AN MRI OF THE KIDNEYS MAY BE WORTHWHILE. 2. NONOBSTRUCTING RIGHT-SIDED NEPHROLITHIASIS. 3. HEPATOMEGALY. 4. STABLE RIGHT ADRENAL LESION. 5. EVIDENCE OF OLD GRANULOMATOUS DISEASE OF THE LIVER. 6. EXTENSIVE POSTSURGICAL CHANGE INVOLVING THE THORACIC LUMBAR JUNCTION.
[2019-07-05] MEDS: NADOLOL 20 MG TAB PO SCH (08:59)
[2019-07-05] MEDS: INSULIN ASPART (NovoLOG) 100 UNIT/ML VIAL SQ SCH ×2 (08:59→11:59)
[2019-07-05] MEDS: PIOGLITAZONE 15 MG TAB PO SCH (09:00)
[2019-07-05] MEDS: metFORMIN 500 MG TAB PO SCH (09:00)
[2019-07-05] MEDS: LISINOPRIL 20 MG TAB PO SCH (09:00)
[2019-07-05] MEDS: FAMOTIDINE 20 MG TAB PO SCH (09:00)
[2019-07-05] MEDS: EZETIMIBE 10 MG TAB PO SCH (09:00)
[2019-07-05] MEDS: DULoxetine HCL 60 MG CAPSULE.DR PO SCH (09:01)
[2019-07-05] MEDS: FUROSEMIDE 10 MG TAB PO SCH (09:01)
[2019-07-05] MEDS: ASPIRIN 81 MG PO SCH (09:01)
--- NOTE | 2019-07-05 09:58 | P.PN ---
Subjective Progress Note Date: 07/05/19 This is a pleasant 59-year-old female who sees Dr. 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 Patient took her bidoran yesterday for diabetes this is something she has done previously. Approximately a later that afternoon patient experienced severe chest pain initi ating in the epigastric area. The pain then radiated to the left shoulder. This is consistent with the previous pain she had prior to stenting 2 years ago. The pain was associated with nausea and mild shortness of breath. The pain lasted approximately 3 hours prior to the ER arrival she received sublingual nitroglycerin and felt that the chest pain was relieved. Patient's cardiac enzymes were negative 3, BUN was 30, creatinine 1.2, her lipase was slightly elevated at 473. Today her lipase is 449. Patient is a nonsmoker and nonalcoholic. No history of pancreatitis. Patient denied any vomiting diarrhea constipation. Patient's past medical history is significant for coronary artery disease status post stenting of mid LAD on 01/22/2018, hypertension, hyperlipidemia, diabetes previous hemoglobin A1c was 7.6. At this time patient is resting comfortably in bed without any chest pain or difficulty breathing. Christiane BC 7.9, hemoglobin 13.0, potassium 4.8, blood glucose 156. Patient has been afebrile and vital signs have been unremarkable. Chest x-ray shows mild scarring or subsegmental atelectasis in the lingula unchanged. Normal heart poor inspiration. Ultrasound shows questionable hepatic calcification, mass arising from the right kidney warrants further investigation possible computed tomography scan of the abdomen would be suggested. 2/2: patient is resting comfortably area patient has not had any further complaints of discomfort. Patient has history of cyst in the right kidney. She has had workups in the past. Patient's creatinine has been slightly elevated in the past. She has seen urology for workup. Patient denies any blood in the urine. Her lipase this morning for 12. CT without contrast ordered for today is negative plan on sending home. Patient has been afebrile vital signs within normal limits. Review Of Systems: Constitutional: No fever, no chills, no night sweats. No weight change. No weakness, fatigue or lethargy. No daytime sleepiness. EENT: No headache. No blurred vision or double vision, no loss of vision. No loss of Hearing, no ringing in the ears, no dizziness. No nasal drainage or congestion. No epistaxis. No sore throat. Lungs: No shortness of breath, cough, no sputum production. No wheezing. Cardiovascular: Resolved chest pain, no lower extremity edema. No palpitations. No paroxysmal nocturnal dyspnea. No orthopnea. No lightheadedness or dizziness. No syncopal episodes. Abdominal: Reports abdominal discomfort epigastric. No nausea, vomiting. no diarrhea. No constipation. No bloody or tarry stools. no loss of appetite. Genitourinary: No dysuria, increased frequency, urgency. No urinary retention. Musculoskeletal: No myalgias. No muscle weakness, no gait dysfunction, no frequent falls. No back pain. No neck pain. Integumentary: No wounds, no lesions. No rash or pruritus. No unusual b ruising. No change in hair or nails. Neurologic: No aphasia. No facial droop. No change in mentation. No head injury. No headache. No paralysis. No paresthesia. Psychiatric: No depression. No anxiety. No mood swings. Endocrine: No abnormal blood sugars. No weight change. No excessive sweating o r thirst. Objective - Vital Signs Vital signs: Vital Signs Temp 97.8 F 07/05/19 07:36 Pulse 64 07/05/19 07:36 Resp 18 07/05/19 07:36 BP 105/68 07/05/19 07:36 Pulse Ox 96 07/05/19 07:36 Intake & Output 07/04/19 07/05/19 07/05/19 18:59 06:59 18:59 Other: Voiding Method Toilet Toilet Toilet # Voids 1 1 - Exam General Appearance: Alert, cooperative, no distress, obese, appears stated age. Neck HEENT: Supple, no lymphadenopathy, no thyroid enlargement, no carotid bruits. Lungs: Clear to auscultation without crackles or wheezes no rhonchi, no deformity. Chest Wall: Chest wall normal expansion with deep inspiration no tenderness and no deformity was found on exam, no costochondral pain or discomfort. Heart: Regular rate and rhythm, S1, S2 normal, no murmur, rub or gallop. Back: Symmetric, no curvature, ROM normal, no CVA tenderness. Abdomen: Soft, epigastric tenderness, no rebound or rigidity, no hepatosplenomegaly. Extremities: Extremities normal, atraumatic, no cyanosis or edema. Pulses: 2+ and symmetric. Skin: Skin color, texture, tugor normal, no rashes or lesions. Neurologic: Alert oriented x3 cranial nerves II through XII intact, no motor deficit, no abnormal balance or gait - Labs CBC & Chem 7: 07/05/19 05:20 07/05/19 05:20 Labs: Abnormal Lab Results - Last 24 Hours (Table) 07/04/19 07/04/19 07/04/19 Range/Units 12:02 16:43 20:08 MCHC (31.0-37.0) g/dL BUN (7-17) mg/dL Creatinine (0.52-1.04) mg/dL Glucose (74-99) mg/dL POC Glucose (mg/dL) 156 H 151 H 161 H (75-99) mg/dL Lipase (23-300) U/L 07/05/19 07/05/19 07/05/19 Range/Units 05:20 05:20 06:48 MCHC 30.9 L (31.0-37.0) g/dL BUN 34 H (7-17) mg/dL Creatinine 1.14 H (0.52-1.04) mg/dL Glucose 121 H (74-99) mg/dL POC Glucose (mg/dL) 145 H (75-99) mg/dL Lipase 412 H (23-300) U/L Assessment and Plan Plan: 1. Chest discomfort with prior history of CAD and stents. Ultrasound results noted above. CT of the abdomen without contrast ordered. If negative will send home today. DC bydureon until seen by endocrinology. Cardiology consult appreciated.. Repeat lipase 412. 2. Epigastric pain as noted above 3. Elevated lipase may be related to bydureon. Ultrasound of abdomen impression questionable hepatic calcification, mass arising from the right kidn ey warts further investigation. Patient has history of kidney cysts. 4. Hypertension. Lasix 20 mg by mouth daily, lisinopril 40 mg by mouth daily Corgard 40 mg by mouth twice a day 5. Diabetes mellitus type 2. farxiga 10 mg by mouth daily, insulin sliding scale, continue metformin 500 mg by mouth twice a day, actos 15mg 6. Hyperlipidemia Lipitor 40 mg by mouth at bedtime, that he attend milligrams by mouth 7. Osteoarthritis. Baclofen 10 mg by mouth 3 times a day, [place] 7.5 one tablet every 8 hours as needed for pain 8. Chronic UTI. Keflex 250 mg by mouth at bedtime 9. Diabetic neuropathy. Cymbalta 60 mg by mouth daily 10. Hypothyroidism. Levothyroxine 112 mcg 7. DVT prophylaxis. Pneumatic compression sleeves 8. GI prophylaxis. Pepcid 20 mg by mouth Status: Full code Discharge disposition: Home possibly today Impression and plan of care have been directed as dictated by the signing physician. Anuradha Nunez nurse practitioner acting as scribe for signing physician.
--- NOTE | 2019-07-05 10:26 | P.PN ---
Subjective Progress Note Date: 07/05/19 This 59-year-old female is admitted to the hospital with chest pain. So far cardiac enzymes and EKGs are negative. She had a computed tomography scan of the abdomen because of abnormal lipase. There is a lesion in the kidney which needs to be evaluated further by MRI. From Cardec standpoint, patient could be discharged home. Patient will have outpatient stress test for further evaluation Objective - Vital Signs Vital signs: Vital Signs Temp 97.8 F 07/05/19 07:36 Pulse 64 07/05/19 07:36 Resp 18 07/05/19 07:36 BP 105/68 07/05/19 07:36 Pulse Ox 96 07/05/19 07:36 Intake & Output 07/04/19 07/05/19 07/05/19 18:59 06:59 18:59 Other: Voiding Method Toilet Toilet Toilet # Voids 1 1 - Exam GENERAL EXAM: Patient is alert and oriented and doesn't appear to be in any acute distress HEENT: Normocephalic. Normal reaction of pupils, equal size, normal range of extraocular motion. No erythema or exudates in the throat. NECK: No masses, no nuchal rigidity. CHEST: No chest wall deformity. LUNGS: Equal air entry with no crackles or wheeze. HEART: S1 and S2 normal with no audible mumurs or gallops. Regular rhythm, femorals equal on both sides.. ABDOMEN: No hepatosplenomegaly, normal bowel sounds, no guarding or rigidity. SKIN: No rashes CENTRAL NERVOUS SYSTEM: No focal deficits. EXTREMITIES: No cyanosis, clubbing or edema. - Labs CBC & Chem 7: 07/05/19 05:20 07/05/19 05:20 Labs: Abnormal Lab Results - Last 24 Hours (Table) 07/04/19 07/04/19 07/04/19 Range/Units 12:02 16:43 20:08 MCHC (31.0-37.0) g/dL BUN (7-17) mg/dL Creatinine (0.52-1.04) mg/dL Glucose (74-99) mg/dL POC Glucose (mg/dL) 156 H 151 H 161 H (75-99) mg/dL Lipase (23-300) U/L 07/05/19 07/05/19 07/05/19 Range/Units 05:20 05:20 06:48 MCHC 30.9 L (31.0-37.0) g/dL BUN 34 H (7-17) mg/dL Creatinine 1.14 H (0.52-1.04) mg/dL Glucose 121 H (74-99) mg/dL POC Glucose (mg/dL) 145 H (75-99) mg/dL Lipase 412 H (23-300) U/L Assessment and Plan (1) Ischemic heart disease Current Visit: Yes Status: Acute Code(s): I25.9 - CHRONIC ISCHEMIC HEART DISEASE, UNSPECIFIED SNOMED Code(s): 088715854 (2) Chest pain Current Visit: Yes Status: Acute Code(s): R07.9 - CHEST PAIN, UNSPECIFIED SNOMED Code(s): 74876012 Plan: Patient could be discharged home. Follow-up in the office in one week
[2019-07-05 11:34] VITALS: BP 115/79; PULSE 74; TEMP 97.5
[2019-07-05 11:42] LABS: Glucose,Whole Blood 124 mg/dL (75-99)
[2019-07-05] MEDS: NON FORMULARY DRUG (Dapagliflozin Propanediol [Farxiga] 10 MG) PO SCH (11:59)
--- NOTE | 2019-07-06 08:24 | P.DS ---
Providers Date of admission: 07/03/19 19:48 Expected date of discharge: 07/05/19 Attending physician: John Hamilton MD Consults: 07/03/19 19:53 Consult Physician Routine Consulting Provider: [facility] Consult Reason/Comments: Chest Pain Do you want consulting provider notified?: Yes Primary care physician: John Hamilton MD Hospital Course: This is a pleasant 59-year-old female who sees Dr. Alden Hamilton, Dr. Romo and Dr. Ana Hamilton director [facility] outpatient setting. Patient took her bidoran yesterday for diabetes this is something she has done previously. Approximately a later that afternoon patient experienced severe chest pain initiating in the epigastric area. The pain then radiated to the left shoulder. This is consistent with the previous pain she had prior to stenting 2 years ago. The pain was associated with nausea and mild shortness of breath. The pain lasted approximately 3 hours prior to the ER arrival she received subling ual nitroglycerin and felt that the chest pain was relieved. Patient's cardiac enzymes were negative 3, BUN was 30, creatinine 1.2, her lipase was slightly elevated at 473. Today her lipase is 449. Patient is a nonsmoker and nonalcoholic. No history of pancreatitis. Patient denied any vomiting diarrhea constipation. Patient's past medical history is significant for coronary artery disease status post stenting of mid LAD on 01/22/2018, hypertension, hyperlipidemia, diabetes previous hemoglobin A1c was 7.6. At this time patient is resting comfortably in bed without any chest pain or difficulty breathing. Christiane BC 7.9, hemoglobin 13.0, potassium 4.8, blood glucose 156. Patient has been afebrile and vital signs have been unremarkable. Chest x-ray shows mild scarring or subsegmental atelectasis in the lingula unchanged. Normal heart poor inspiration. Ultrasound shows questionable hepatic calcification, mass arising from the right kidney warrants further investigation possible computed tomography scan of the abdomen would be suggested. 2/2: patient is resting comfortably area patient has not had any further complaints of discomfort. Patient has history of cyst in the right kidney. She has had workups in the past. Patient's creatinine has been slightly elevated in the past. She has seen urology for workup. Patient denies any blood in the urine. Her lipase this morning for 12. CT without contrast ordered for today is negative plan on sending home. Patient has been afebrile vital signs within normal limits. CAT scan of the abdomen without contrast revealed a 1.4 cm echogenic lesion in the mid polar region of the right kidney likely representing abnormal ultrasound finding. Not needing requirements of a simple cyst. MRI of the kidneys may be worthwhile. Nonobstructing right sided nephrolithiasis. Hepatomegaly. Stable right adrenal lesion. 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 Extensive postsurgical changes involving the thoracic lumbar junction. Patient was seen and followed by cardiology and cleared for discharge home and follow up in the office. Patient discharged home today in stable condition. Discharge diagnoses: 1. Chest discomfort with prior history of CAD and stents. 2. Epigastric pain as noted above 3. Elevated lipase may be related to Bydureon. 4. Hypertension. 5. Diabetes mellitus type 2. 6. Hyperlipidemia 7. Osteoarthritis. 8. Chronic UTI. 9. Diabetic neuropathy. 10. Hypothyroidism. Discharge disposition: Home Impression and plan of care have been directed as dictated by the signing physician. Bridget Bhardwaj nurse practitioner acting as scribe for signing physician. Patient Condition at Discharge: Good Plan - Discharge Summary Discharge Rx Participant: No New Discharge Prescriptions: No Action Lidocaine 5% Patch [Lidoderm 5% Patch] 2 patch TOPICAL Q12H PRN PRN Reason: Pain HYDROcodone/APAP 7.5-325MG [[place] 7.5-325] 1 each PO Q8H PRN PRN Reason: Pain DULoxetine HCL [Cymbalta] 60 mg PO DAILY Nadolol [Corgard] 40 mg PO BID Montelukast [Singulair] 10 mg PO HS Ezetimibe [Zetia] 10 mg PO DAILY Albuterol Sulfate [Proair Hfa] 2 puff INHALATION Q6HR PRN PRN Reason: Shortness Of Breath Pioglitazone [Actos] 15 mg PO DAILY Insulin Lispro [humaLOG] 6 units SQ AC-TID Aspirin [Adult Low Dose Aspirin EC] 81 mg PO DAILY Furosemide [Lasix] 20 mg PO DAILY Levothyroxine Sodium [Synthroid] 112 mcg PO DAILY Nitroglycerin Sl Tabs [Nitrostat] 0.4 mg SUBLINGUAL Q5M PRN #25 tab PRN Reason: Chest Pain Atorvastatin [Lipitor] 40 mg PO HS Dapagliflozin Propanediol [Farxiga] 10 mg PO DAILY Famotidine [Pepcid] 20 mg PO DAILY Baclofen 10 mg PO TID PRN PRN Reason: Spasms Cephalexin [Keflex] 250 mg PO HS metFORMIN HCL 500 mg PO BID Calcium Carb/Vitamin D3/Vit K1 [Citracal Soft Chew] 1 tab PO DAILY Ergocalciferol (Vitamin D2) [Drisdol] 50,000 unit PO FR Ramipril 10 mg PO DAILY Enalapril [Vasotec] 10 mg PO BID Discharge Medication List Albuterol Sulfate [Proair Hfa] 2 puff INHALATION Q6HR PRN 10/09/14 [History] DULoxetine HCL [Cymbalta] 60 mg PO DAILY 10/09/14 [History] Ezetimibe [Zetia] 10 mg PO DAILY 10/09/14 [History] HYDROcodone/APAP 7.5-325MG [[place] 7.5-325] 1 each PO Q8H PRN 10/09/14 [History] Insulin Lispro [humaLOG] 6 units SQ AC-TID 10/09/14 [History] Lidocaine 5% Patch [Lidoderm 5% Patch] 2 patch TOPICAL Q12H PRN 10/09/14 [Histo ry] Montelukast [Singulair] 10 mg PO HS 10/09/14 [History] Nadolol [Corgard] 40 mg PO BID 10/09/14 [History] Pioglitazone [Actos] 15 mg PO DAILY 10/09/14 [History] Aspirin [Adult Low Dose Aspirin EC] 81 mg PO DAILY 01/20/18 [History] Furosemide [Lasix] 20 mg PO DAILY 01/20/18 [History] Levothyroxine Sodium [Synthroid] 112 mcg PO DAILY 01/20/18 [History] Nitroglycerin Sl Tabs [Nitrostat] 0.4 mg SUBLINGUAL Q5M PRN #25 tab 01/23/18 [Rx] Atorvastatin [Lipitor] 40 mg PO HS 07/03/19 [History] Baclofen 10 mg PO TID PRN 07/03/19 [History] Calcium Carb/Vitamin D3/Vit K1 [Citracal Soft Chew] 1 tab PO DAILY 07/03/19 [History] Cephalexin [Keflex] 250 mg PO HS 07/03/19 [History] Dapagliflozin Propanediol [Farxiga] 10 mg PO DAILY 07/03/19 [History] Ergocalciferol (Vitamin D2) [Drisdol] 50,000 unit PO FR 07/03/19 [History] Famotidine [Pepcid] 20 mg PO DAILY 07/03/19 [History] Ramipril 10 mg PO DAILY 07/03/19 [History] metFORMIN HCL 500 mg PO BID 07/03/19 [History] Enalapril [Vasotec] 10 mg PO BID 07/04/19 [History] Follow up Appointment(s)/Referral(s): John Hamilton MD [Primary Care Provider] - 1-2 days Mansi Romo MD [STAFF PHYSICIAN] - 1 Week Patient Instructions/Handouts: Chest Pain (GEN) Activity/Diet/Wound Care/Special Instructions: Stop Bydureon until follow up with Dr. Hamilton Discharge Disposition: HOME SELF-CARE
[2019-07-10] MEDS ORDERED: EXENATIDE MICROSPHERES 2 MG SQ SCH (09:00)
[2019-07-10] MEDS ORDERED: ERGOCALCIFEROL 50,000 UNIT CAP PO SCH (09:00)
== END 2019-07-05 14:58 | disposition home or self-care (01) ==
LOC: EC 18:06 → 1SOBS 19:48
PROVIDERS: ADMIT Internal Medicine; ATTEND Internal Medicine
DX: R07.89 Other chest pain (principal); R10.13 Epigastric pain; R10.816 Epigastric abdominal tenderness; M25.512 Pain in left shoulder; R11.0 Nausea; R06.02 Shortness of breath; R74.8 Abnormal levels of other serum enzymes; I25.10 Atherosclerotic heart disease of native coronary artery without angina pectoris; Z95.5 Presence of coronary angioplasty implant and graft; I10 Essential (primary) hypertension; E11.40 Type 2 diabetes mellitus with diabetic neuropathy, unspecified; E78.5 Hyperlipidemia, unspecified; M19.90 Unspecified osteoarthritis, unspecified site; N39.0 Urinary tract infection, site not specified; E89.0 Postprocedural hypothyroidism; J44.9 Chronic obstructive pulmonary disease, unspecified; K21.9 Gastro-esophageal reflux disease without esophagitis; E24.9 Cushing's syndrome, unspecified; I25.9 Chronic ischemic heart disease, unspecified; R93.421 Abnormal radiologic findings on diagnostic imaging of right kidney; N20.0 Calculus of kidney; R16.0 Hepatomegaly, not elsewhere classified; E27.9 Disorder of adrenal gland, unspecified; K75.3 Granulomatous hepatitis, not elsewhere classified; R91.8 Other nonspecific abnormal finding of lung field; I08.3 Combined rheumatic disorders of mitral, aortic and tricuspid valves; Z79.899 Other long term (current) drug therapy; Z79.4 Long term (current) use of insulin; Z79.82 Long term (current) use of aspirin; Z79.890 Hormone replacement therapy; Z88.5 Allergy status to narcotic agent; Z88.0 Allergy status to penicillin; Z88.2 Allergy status to sulfonamides; Z86.14 Personal history of Methicillin resistant Staphylococcus aureus infection; Z90.49 Acquired absence of other specified parts of digestive tract; Z98.890 Other specified postprocedural states; Z87.81 Personal history of (healed) traumatic fracture; Z98.42 Cataract extraction status, left eye; Z98.41 Cataract extraction status, right eye; Z87.19 Personal history of other diseases of the digestive system; Z87.448 Personal history of other diseases of urinary system; Z82.49 Family history of ischemic heart disease and other diseases of the circulatory system; Z83.3 Family history of diabetes mellitus; Z83.438 Family history of other disorder of lipoprotein metabolism and other lipidemia; Z80.0 Family history of malignant neoplasm of digestive organs; Z80.1 Family history of malignant neoplasm of trachea, bronchus and lung; Z83.2 Family history of diseases of the blood and blood-forming organs and certain disorders involving the immune mechanism; Z82.5 Family history of asthma and other chronic lower respiratory diseases; Z83.49 Family history of other endocrine, nutritional and metabolic diseases
CPT/HCPCS: 93005 ×2; 99285; 36415; 94760; 80053; 80048; 83690 ×3; 83735; 84484 ×2; 85025 ×2; 85610; 85730; 71046; 76700; 74150; G0378 ×3; C8929; Q9950; 93306

== ENCOUNTER → 2019-07-20 | Outpatient (CLI) | payer MEDICARE ==
--- NOTE | 2019-07-21 03:56 | MR ---
EXAMINATION TYPE: MR abdomen wo/w con DATE OF EXAM: 07/20/2019 COMPARISON: HISTORY: Rt renal mass, abd CT CONTRAST: Standard multiplanar, multisequence MRI departmental protocol utilizing 10 mL intravenous Gadavist ga dolinium contrast. Liver shows no focal defect. Bile ducts are not dilated. Gallbladder appears normal. Spleen appears n ormal. There is no evidence of pancreatic mass. Pancreatic duct appears normal. Stomach is intact. Kidneys have normal size. There are multiple cysts on the right kidney which show thin wall and sharp margination. The largest measures 1.8 x 1.2 cm on the lateral right kidney. The other cysts measure 7 to 12 mm. There is no pathologic enhancement. There are small cortical cysts also in the left kidne y measuring up to 6 mm. There is no evidence of retroperitoneal adenopathy. There is no hydronephrosi s. Right renal cortical cysts show variable increased signal on the T2 images consistent with presenc e of some calcium. There is no ascites. There is no sign of a bowel obstruction. IMPRESSION: Multiple bilateral renal cortical cysts are more numerous on the right side. No suspicious renal mass . No pathologic enhancement. The rounded mass on the lateral right kidney on the recent CT scan appea rs benign on this exam. This is consistent with a cyst that contains small amount of calcium.
== END | disposition home or self-care (01) ==
LOC: RADMRIMAIN 09:09
PROVIDERS: ATTEND Internal Medicine
DX: N28.1 Cyst of kidney, acquired (principal)
CPT/HCPCS: 74183; A9585

== ENCOUNTER → 2020-06-17 | Outpatient (CLI) | payer MEDICARE ==
--- NOTE | 2020-06-17 14:23 | CT ---
EXAMINATION TYPE: CT abdomen pelvis w con DATE OF EXAM: 06/17/2020 HISTORY: Stomach pains CT DLP: 3003mGycm Automated Exposure Control for Dose Reduction was Utilized. CONTRAST: CT scan of the abdomen and pelvis is performed with IV Contrast, patient injected with 80 mL of Isovu e 300. COMPARISON: CT abdomen July 05, 2019 and older CTs FINDINGS: LUNG BASES: Coronary artery calcification is present. LIVER/GB: Scattered calcifications throughout the liver. PANCREAS: No significant abnormality is seen. SPLEEN: No significant abnormality is seen. ADRENALS: Stable 2.7 cm left adrenal mass from 2012 presumed benign. KIDNEYS: Symmetric cortical medullary uptake and excretion without hydronephrosis seen bilaterally. S table 1.3 cm hyperdense lesion laterally right kidney likely reflecting proteinaceous cyst. BOWEL: Oral contrast only reaches the right colon. No suspicious small or large bowel dilatation. UTERUS/ADNEXA: Anteverted uterus redemonstrated. Right-sided tubal ligation clip on current study. LYMPH NODES: No greater than 1cm abdominal or pelvic lymph nodes are appreciated. OSSEOUS STRUCTURES: Underlying scoliosis with surgical correction hardware redemonstrated. OTHER: Mild calcified plaque of the aorta extending into branch vessels. IMPRESSION: No bowel obstruction. No significant new or acute finding is seen to account for patient 's clinical symptoms.
== END | disposition home or self-care (01) ==
LOC: RADCTMAIN 11:23
PROVIDERS: ATTEND Internal Medicine
DX: R10.30 Lower abdominal pain, unspecified (principal)
CPT/HCPCS: 82565; 84520; 74177; 36415; Q9967

== ENCOUNTER 2020-06-20 09:30 | Day surgery (SDC) | payer MEDICARE ==
[2020-06-17 10:44] VITALS: BMI 33.1
[~2020-06-20 09:30] MED LIST: LACTATED RINGERS 1,000 ML IV SCH; LIDOCAINE 1% (10MG/ML) FOR IV START INTRADERMA PRN
[2020-06-20 09:58] VITALS: RESP 16; TEMP 98.6
[2020-06-20 10:07] LABS: Glucose,Whole Blood 194 mg/dL (75-99)
[2020-06-20] MEDS ORDERED: PROPOFOL 10 MG/ML 20 ML VIAL IV ONE (10:16)
[2020-06-20] MEDS ORDERED: fentaNYL (PF) 50 MCG/ML 2 ML AMP ONE (10:16)
[2020-06-20] MEDS ORDERED: MIDAZOLAM 2 MG/2 ML VIAL ONE (10:16)
--- NOTE | 2020-06-20 10:35 | P.PCN ---
Date of Procedure: 06/20/20 Procedure(s) Performed: BRIEF HISTORY: Patient is a 60-year-old, pleasant, female scheduled for an upper endoscopy as a part of evaluation of epigastric pain with abdominal bloating associated with intermittent nausea for the last several months duration.. PROCEDURE PERFORMED: Esophagogastroduodenoscopy with biopsy. PREOPERATIVE DIAGNOSIS: Epigastric pain/nausea vomiting and abdominal bloating several months duration. IV sedation per anesthesia. PROCEDURE: After informed consent was obtained, the patient was brought into the endoscopy unit. IV sedation was administered by Anesthesia under continuous monitoring. Initially the Olympus GIF-140 video endoscope was inserted into the mouth. Esophagus intubated without any difficulty. It was gradually advanced into the stomach and duodenum and carefully examined. The bulb and the second part of the duodenum appeared normal. The scope at this time was withdrawn to the stomach, adequately insufflated with air, and upon careful examination, mucosa of the antrum, had mild gastritis and biopsies were done from this area. The body, cardia and the fundus appeared normal. It was moderate amount of retained food in the stomach suggestive of diabetic gastroparesis. The scope was then withdrawn into the esophagus. The GE junction was located at 39 cm from the incisors. The esophagus appeared normal. There were no erosions or ulcerations seen and the patient tolerated the procedure well. IMPRESSION: 1. Mild antral gastritis. 2. Retained food in the stomach suggestive of diabetic gastroparesis. RECOMMENDATIONS: The findings of this examination were discussed with the patient as well as a family. She was advised to increase the PPI to twice daily and start on small frequent meals and continue with diet modification.
[2020-06-20 10:47] VITALS: BP 133/82; PULSE 82
== END 2020-06-20 11:19 | disposition home or self-care (01) ==
LOC: ORWHC2ENDO 09:30
PROVIDERS: ATTEND Internal Medicine Gastroenterology
DX: K29.50 Unspecified chronic gastritis without bleeding (principal); K31.89 Other diseases of stomach and duodenum; M26.69 Other specified disorders of temporomandibular joint; I25.10 Atherosclerotic heart disease of native coronary artery without angina pectoris; I10 Essential (primary) hypertension; E78.5 Hyperlipidemia, unspecified; J44.9 Chronic obstructive pulmonary disease, unspecified; G47.33 Obstructive sleep apnea (adult) (pediatric); E11.9 Type 2 diabetes mellitus without complications; M41.9 Scoliosis, unspecified; M19.90 Unspecified osteoarthritis, unspecified site; M51.9 Unspecified thoracic, thoracolumbar and lumbosacral intervertebral disc disorder; G62.9 Polyneuropathy, unspecified; K21.9 Gastro-esophageal reflux disease without esophagitis; Z88.2 Allergy status to sulfonamides; Z88.5 Allergy status to narcotic agent; Z88.0 Allergy status to penicillin; Z99.89 Dependence on other enabling machines and devices; Z79.899 Other long term (current) drug therapy; Z79.890 Hormone replacement therapy; Z79.4 Long term (current) use of insulin; Z79.891 Long term (current) use of opiate analgesic
CPT/HCPCS: 88305; 43239; J2250; J3010; J2704

== ENCOUNTER → 2021-02-15 | Outpatient (CLI) | payer MEDICARE ==
[~2021-02-15] MED LIST changes: -LACTATED RINGERS 1,000 ML IV SCH; -LIDOCAINE 1% (10MG/ML) FOR IV START INTRADERMA PRN; +SODIUM CHLORIDE 0.9% 500 ML 500 ML in EMPTY BAG 1 BAG IV PRN; +ZOLEDRONIC ACID 5 MG in SODIUM CHLORIDE 0.9% 100 ML IV NR
[2021-02-15 11:46] VITALS: BP 165/87; PULSE 78; RESP 16; TEMP 98
== END | disposition home or self-care (01) ==
LOC: PROCWHC3 11:28
PROVIDERS: ATTEND Internal Medicine
DX: M89.9 Disorder of bone, unspecified (principal)
CPT/HCPCS: 96365; J3489

== ENCOUNTER → 2022-02-20 | Outpatient (CLI) | payer MEDICARE ==
[2022-02-20 11:39] VITALS: BP 170/91; PULSE 56; RESP 15; TEMP 98.1
== END | disposition home or self-care (01) ==
LOC: PROCWHC3 11:13
PROVIDERS: ATTEND Internal Medicine
DX: M89.9 Disorder of bone, unspecified (principal); E55.9 Vitamin D deficiency, unspecified
CPT/HCPCS: 96365; J3489

== ENCOUNTER → 2022-06-15 | Outpatient (CLI) | payer MEDICARE ==
--- NOTE | 2022-06-15 14:36 | US ---
EXAMINATION TYPE: US kidneys/renal and bladder DATE OF EXAM: 06/15/2022 COMPARISON: Abdominal ultrasound 07/04/2019, CT abdomen 07/05/2019, CT abdomen and pelvis 06/17/2020, MR bonnie bdomen 07/20/2019. CLINICAL HISTORY: E11.65 DIABETES. hx renal cysts. EXAM MEASUREMENTS: Right Kidney: 11.2 x 5.1 x 5.7 cm Left Kidney: 10.4 x 4.6 x 5.7 cm Limited due to patient body habitus Right Kidney: Multiple cysts seen, largest measured. 1= Medial lower pole cortical cyst - 2.4 x 2.2 x 1.9 cm. 2- Mid cortical cyst = 1.9 x 1.7 x 1.4 cm. Left Kidney: No hydronephrosis or masses seen, limited due to bowel gas. Bladder: not well visualized, mildly distended Bilateral Jets not seen There is no evidence for hydronephrosis at this point in time. Right renal cyst demonstrated. No neph rolithiasis is seen. No masses grossly identified. The urinary bladder is anechoic. IMPRESSION: Limited examination due to patient's body habitus. 1. No hydronephrosis or shadowing calculi. 2. Right renal cyst redemonstrated.
== END | disposition home or self-care (01) ==
LOC: RADUSWWP 13:35
PROVIDERS: ATTEND Internal Medicine
DX: N28.1 Cyst of kidney, acquired (principal); E11.65 Type 2 diabetes mellitus with hyperglycemia
CPT/HCPCS: 76770

== ENCOUNTER → 2022-06-15 | Outpatient (CLI) | payer MEDICARE ==
--- NOTE | 2022-06-15 14:40 | XR ---
EXAMINATION TYPE: XR lumbosacral spine min 4V DATE OF EXAM: 06/15/2022 2:34 PM INDICATION: Patient age:Female; 62 years old; Reason for study: M54.50 BACK PAIN; [facility]. COMPARISON: Lumbar spine radiograph 08/20/2014, CT abdomen and pelvis 06/17/2020. TECHNIQUE: Frontal, lateral , bilateral oblique and coned in L5-S1 lateral views of the spine. FINDINGS: There are 5 lumbar type vertebral bodies identified. Osseous structures are demineralized w hich limits evaluation. Dextroconvex scoliosis redemonstrated despite attempted surgical correction w ith large long Zelaya rods running from T12 to L4 level on the right and L1-L4 level on the left. Degree of sclerotic curvature and alignment is stable. Vertebral body heights are maintained. Simila r grade 1 anterior listhesis of L4 on L5. Multilevel moderate disc space narrowing is present. Vascul ar calcifications are redemonstrated. IMPRESSION: 1. No acute process. 2. Overall stable postsurgical changes and scoliosis.
== END | disposition home or self-care (01) ==
LOC: RADXRMAIN 13:40
PROVIDERS: ATTEND Physical Medicine & Rehabilitation
DX: M41.87 Other forms of scoliosis, lumbosacral region (principal); Z98.890 Other specified postprocedural states
CPT/HCPCS: 72110

== ENCOUNTER 2022-12-14 15:03 | Emergency (ER) | payer MEDICARE ==
[2022-12-14 16:10] VITALS: TEMP 98.6
[2022-12-14 16:25] LABS: Glucose,Whole Blood 193 mg/dL (70-110)
[2022-12-14 18:25] LABS: Basophils % (A) 0 %; Eosinophils # (A) 0.4 k/uL (0-0.7); Eosinophils % (A) 4 %; HCT 36.6 % (34.0-46.0); HGB 11.8 gm/dL (11.4-16.0); Hypochromasia Slight; Lymphocytes # (A) 1.2 k/uL (1.0-4.8); Lymphocytes % (A) 12 %; MCH 29.2 pg (25.0-35.0); MCHC 32.3 g/dL (31.0-37.0); MCV 90.3 fL (80.0-100.0); Mean Platelet Volume 7.9; Monocytes # (A) 0.5 k/uL (0-1.0); Monocytes % (A) 4 %; Neutrophils # (A) 8.2 k/uL (1.3-7.7); Neutrophils % (A) 79 %; Platelet Count 257 k/uL (150-450); RBC 4.05 m/uL (3.80-5.40); RDW 15.6 % (11.5-15.5); WBC 10.4 k/uL (3.8-10.6)
--- NOTE | 2022-12-14 18:35 | XR ---
EXAMINATION TYPE: XR chest 1V portable DATE OF EXAM: 12/14/2022 Comparison: 07/03/2019 Clinical History: 62-year-old female dizziness Findings: The heart is upper limits of normal in size. Aorta and pulmonary vasculature within normal limits. Lo w lung volumes. Hazy density is from large body habitus. No definite consolidation or pleural effusio n. Impression: Some hypoventilatory changes and limitations due to large body habitus and portable technique. No def inite acute process.
[2022-12-14 18:49] LABS: ALT 23 U/L (4-34); AST 25 U/L (14-36); African American GFR (CKD) 55 (>60 ml/min/1.73 sqM); Albumin 3.2 g/dL (3.5-5.0); Alcohol <10 mg/dL; Alkaline Phosphatase 125 U/L (38-126); Anion Gap 7 mmol/L; Blood Urea Nitrogen 30 mg/dL (7-17); Calcium 9.1 mg/dL (8.4-10.2); Carbon Dioxide 26 mmol/L (22-30); Chloride 104 mmol/L (98-107); Glucose 171 mg/dL (74-99); Non-African American GFR(CKD) 48 (>60 ml/min/1.73 sqM); Sodium 137 mmol/L (137-145); Total Bilirubin 0.3 mg/dL (0.2-1.3); Total Protein 6.1 g/dL (6.3-8.2)
[2022-12-14 18:51] VITALS: RESP 18
[2022-12-14 19:13] LABS: Appearance,Urine Clear (Clear); Bilirubin,Urine Negative (Negative); Blood,Urine Trace (Negative); Color,Urine Yellow; Glucose,Urine (UA) 1+ (Negative); Hyaline Casts,Urine 8 /lpf (0-2); Ketones,Urine Negative (Negative); Leukocyte Esterase,Urine Negative (Negative); Mucus,Urine Rare /hpf; Nitrite,Urine Negative (Negative); Protein,Urine 3+ (Negative); RBC,Urine 1 /hpf (0-5); Specific Gravity,Urine 1.012 (1.001-1.035); Squamous Epithelial Cell,Urine <1 /hpf (0-4); Urobilinogen,Urine <2.0 mg/dL (<2.0); WBC,Urine 2 /hpf (0-5)
--- NOTE | 2022-12-14 20:53 | ED ---
Dizziness HPI - General Chief Complaint: Dizziness Stated Complaint: Dizzy Time Seen by Provider: 12/14/22 16:45 Source: patient Mode of arrival: wheelchair Limitations: no limitations - History of Present Illness Initial Comments: This patient is a 62-year-old woman who presents with complaint that she is feeling dizzy going on for about a day now. Patient states that she recently had some medication change by her primary physician. She believes that has resolved and her blood pressure has been higher than normal and she has been feeling like her balance is off. The patient denies chest pain, dyspnea, diaphoresis, nausea or vomiting. No headache or neurologic symptoms. MD Complaint: dizziness -: days(s) Timing: gradual onset Description: off-balance History of Same: No History of Trauma: No Severity: moderate Improves With: remaining still Worsens With: movement, exertion Associated Symptoms: denies other symptoms - Related Data Home Medications Medication Instructions Recorded Confirmed Albuterol Sulfate [Proair Hfa] 2 puff INHALATION Q6HR PRN 10/09/14 12/20/22 DULoxetine HCL [Cymbalta] 60 mg PO DAILY 10/09/14 12/20/22 Ezetimibe [Zetia] 10 mg PO DAILY 10/09/14 12/20/22 Montelukast [Singulair] 10 mg PO HS 10/09/14 12/20/22 nadoloL [Corgard] 40 mg PO BID 10/09/14 12/20/22 Aspirin [Adult Low Dose Aspirin EC] 81 mg PO DAILY 01/20/18 12/20/22 Furosemide [Lasix] 20 mg PO DAILY 01/20/18 12/20/22 Levothyroxine Sodium [Synthroid] 112 mcg PO DAILY 01/20/18 12/20/22 Atorvastatin [Lipitor] 80 mg PO HS 07/03/19 12/20/22 Calcium Carb/Vitamin D3/Vit K1 1 tab PO DAILY 07/03/19 12/20/22 [Citracal Soft Chew] Ergocalciferol (Vitamin D2) 50,000 unit PO FR 07/03/19 12/20/22 [Drisdol] cephALEXin [Keflex] 250 mg PO HS 07/03/19 12/20/22 metFORMIN HCL [Glucophage] 500 mg PO HS 07/03/19 12/20/22 ramipriL [Ramipril] 15 mg PO DAILY 07/03/19 12/20/22 Lidocaine 5% Patch [Lidoderm] 1 patch TOPICAL DAILY 02/20/22 12/20/22 Famotidine [Pepcid] 20 mg PO BID 12/20/22 12/20/22 HYDROcodone/APAP 10-325MG [Peck 1 tab PO Q6HR PRN 12/20/22 12/20/22 10-325] INSULIN LISPRO (humaLOG) [humaLOG] 10 units SQ TID 12/20/22 12/20/22 Insulin Glargine/Lixisenatide 45 units SQ DAILY 12/20/22 12/20/22 [Soliqua 100 Unit-33 Mcg/ml Pen] Previous Rx's Medication Instructions Recorded Nitroglycerin Sl Tabs [Nitrostat] 0.4 mg SUBLINGUAL Q5M PRN #25 tab 01/23/18 Allergies Allergy/AdvReac Type Severity Reaction Status Date / Time codeine Allergy Nausea & Verified 12/20/22 10:19 Vomiting morphine Allergy Rash/Hives Verified 12/20/22 10:19 Penicillins Allergy Rash/Hives Verified 12/20/22 10:19 Sulfa (Sulfonamide Allergy Rash/Hives Verified 12/20/22 10:19 Antibiotics) sulfamethoxazole Allergy Unknown Verified 12/20/22 10:19 [From Bactrim] trimethoprim [From Bactrim] Allergy Unknown Verified 12/20/22 10:19 Review of Systems ROS Statement: Those systems with pertinent positive or pertinent negative responses have been documented in the HPI. ROS Other: All systems not noted in ROS Statement are negative. Constitutional: Denies: fever, chills, weakness Eyes: Denies: vision change Respiratory: Denies: cough, dyspnea Cardiovascular: Denies: chest pain, palpitations, edema Gastrointestinal: Denies: abdominal pain, nausea, vomiting Genitourinary: Denies: dysuria, hematuria Musculoskeletal: Denies: back pain Skin: Denies: rash Neurological: Denies: headache, weakness, numbness, confusion Past Medical History Past Medical History: Asthma, Coronary Artery Disease (CAD), COPD, Diabetes Mellitus, GERD/Reflux, Hyperlipidemia, Hypertension, Osteoarthritis (OA), Renal Disease, Sleep Apnea/CPAP/BIPAP, Thyroid Disorder Additional Past Medical History / Comment(s): migraines, hypothyroid, cushings disease, cysts on kidneys/kidney stones, chronic back pain, scol iosis/spondylosis, DJD, DDD, neuropathy BLE, unable to use cpap. 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, rods in back, right shoulder surgery after she broke it, bunion surgery, bilat cataract surgery, colonscopy Past Anesthesia/Blood Transfusion Reactions: No Reported Reaction Date of Last Stent Placement:: 2017 Past Psychological History: No Psychological Hx Reported Smoking Status: Never smoker Past Alcohol Use History: None Reported Past Drug Use History: None Reported - Past Family History Father Family Medical History: Coronary Artery Disease (CAD), Diabetes Mellitus, Hyperlipidemia, Hypertension Additional Family Medical History / Comment(s): cabg, at 92 Mother Family Medical History: Cancer, Coronary Artery Disease (CAD), Diabetes Mellitus, Hyperlipidemia, Hypertension Additional Family Medical History / Comment(s): cabg, lung and colon cancer, at 85 Brother(s) Family Medical History: Blood Disorder, Cancer, COPD, Coronary Artery Disease (CAD), Diabetes Mellitus, Hyperlipidemia, Hypertension Additional Family Medical History / Comment(s): cabg, lung cancer Sister(s) Family Medical History: Blood Disorder, Coronary Artery Disease (CAD), Diabetes Mellitus, Hyperlipidemia, Hypertension Daughter(s) Family Medical History: Cancer, Thyroid Disorder Additional Family Medical History / Comment(s): hashimotos, obesity, 2 daughters, protein C deficiency, female cancer General Exam Limitations: no limitations General appearance: alert, in no apparent distress Head exam: Present: atraumatic, normocephalic Eye exam: Present: normal appearance, PERRL, EOMI. Absent: scleral icterus, conjunctival injection, nystagmus ENT exam: Present: normal oropharynx Neck exam: Present: normal inspection, full ROM. Absent: meningismus Respiratory exam: Present: normal lung sounds bilaterally. Absent: respiratory distress, wheezes, rales, rhonchi, stridor Cardiovascular Exam: Present: regular rate, normal rhythm, normal heart sounds. Absent: systolic murmur, diastolic murmur, rubs, gallop GI/Abdominal exam: Present: soft. Absent: distended, tenderness, guarding, rebound, rigid, mass Extremities exam: Present: normal inspection, normal capillary refill. Absent: pedal edema, calf tenderness Back exam: Present: normal inspection. Absent: CVA tenderness (R), CVA tenderness (L) Neurological exam: Present: alert, oriented X3. Absent: motor sensory deficit Skin exam: Present: warm, dry, intact, normal color. Absent: rash Course Vital Signs 12/14/22 12/14/22 12/14/22 16:07 18:50 19:33 Temperature 98.6 F Pulse Rate 77 79 77 Respiratory 20 18 18 Rate Blood Pressure 143/83 164/89 149/89 O2 Sat by Pulse 98 99 98 Oximetry 12/14/22 21:07 Temperature Pulse Rate 74 Respiratory 18 Rate Blood Pressure 163/92 O2 Sat by Pulse 98 Oximetry EKG Findings - EKG Results: EKG: interpreted by ROSARIO, sinus rhythm (Rate 78 bpm), normal axis, normal ST/T - Blocks, [place], Hypertrophy, ST Abn: AV and intraventricular conduction: right bundle branch block (fixed/intermittent, complete/incomplete) Medical Decision Making - Medical Decision Making The patient had chest x-ray which I interpreted as being negative for acute infiltrate, pneumothorax, congestive heart failure This patient is 62-year-old woman here with dizziness after recent change in medications. The workup is benign, and at this point we'll have patient's discussed with her physician reverting back to the previous medications as they did not appear to be causing problems. Discussed appropriate further care and follow-up as well as return parameters Was pt. sent in by a medical professional or institution (, PA, CLINICAL UNIT EDUCATOR, urgent care, hospital, or halfway...) When possible be specific @ -[No] Did you speak to anyone other than the patient for history (EMS, parent, family, police, friend...)? What history was obtained from this source @ -[No] Did you review nursing and triage notes (agree or disagree)? Why? @ -[I reviewed and agree with nursing and triage notes] Were old charts reviewed (outside hosp., previous admission, EMS record, old EKG, old radiological studies, urgent care reports/EKG's, halfway records)? Report findings @ -[No old charts were reviewed] Differential Diagnosis (chest pain, altered mental status, abdominal pain women, abdominal pain men, vaginal bleeding, weakness, fever, dyspnea, syncope, he adache, dizziness, GI bleed, back pain, seizure, CVA, palpatations, mental health, musculoskeletal)? @ -[Differential Dizziness: Benign paroxysmal positional Vertigo, Menieres disease, otitis media, acoustic neuroma, vertebrobasilar insufficiency, cerebellar stroke, encephalitis, hypovolemic, arrhythmia, coronary artery syndrome, anemia, this is not meant to be an all-inclusive list EKG interpreted by me (3pts min.). @ -[As above] X-rays interpreted by me (1pt min.). @ -[As above CT interpreted by me (1pt min.). @ -[None done] U/S interpreted by me (1pt. min.). @ -[None done] What testing was considered but not performed or refused? (CT, X-rays, U/S, labs)? Why? @ -[None] What meds were considered but not given or refused? Why? @ -[None] Did you discuss the management of the patient with other professionals (professionals i.e. , PA, CLINICAL UNIT EDUCATOR, lab, RT, psych nurse, health care social worker, block mason, teacher, certified juvenile probation officer, spring encaser)? Give summary @ -[No] Was smoking cessation discussed for >3mins.? @ -[No] Was critical care preformed (if so, how long)? @ -[No] Were there social determinants of health that impacted care today? How? (Homelessness, low income, unemployed, alcoholism, drug addiction, transportatio n, low edu. Level, literacy, decrease access to med. care, fpc, rehab)? @ -[No] Was there de-escalation of care discussed even if they declined (Discuss DNR or withdrawal of care, Hospice)? DNR status @ -[No] What co-morbidities impacted this encounter? (DM, HTN, Smoking, COPD, CAD, Cancer, CVA, ARF, Chemo, Hep., AIDS, mental health diagnosis, sleep apnea, morbid obesity)? @ -[None] Was patient admitted / discharged? Hospital course, mention meds given and route, prescriptions, significant lab abnormalities, going to OR and other pertinent info. @ -[The patient is discharged after discussion of appropriate further care and follow-up as well as return parameters. Undiagnosed new problem with uncertain prognosis? @ -[No] Drug Therapy requiring intensive monitoring for toxicity (Heparin, Nitro, Insuli n, Cardizem)? @ -[No] Were any procedures done? @ -[No] Diagnosis/symptom? @ -[Acute dizziness Acute, or Chronic, or Acute on Chronic? @ -[default] Uncomplicated (without systemic symptoms) or Complicated (systemic symptoms)? @ -[Uncomplicated Side effects of treatment? @ -[No] Exacerbation, Progression, or Severe Exacerbation? @ -[No] Poses a threat to life or bodily function? How? (Chest pain, [place], [place], pneumonia, PE, COPD, DKA, ARF, appy, cholecystitis, CVA, Diverticulitis, Homicidal, Suicidal, threat to staff... and all critical care pts) @ -[No] - Lab Data Result diagrams: 12/14/22 18:06 12/14/22 18:06 Lab Results 12/14/22 12/14/22 12/14/22 Range/Units 16:22 18:06 18:06 WBC 10.4 (3.8-10.6) k/uL RBC 4.05 (3.80-5.40) m/uL Hgb 11.8 (11.4-16.0) gm/dL Hct 36.6 (34.0-46.0) % MCV 90.3 (80.0-100.0) fL MCH 29.2 (25.0-35.0) pg MCHC 32.3 (31.0-37.0) g/dL RDW 15.6 H (11.5-15.5) % Plt Count 257 (150-450) k/uL MPV 7.9 Neutrophils % 79 % Lymphocytes % 12 % Monocytes % 4 % Eosinophils % 4 % Basophils % 0 % Neutrophils # 8.2 H (1.3-7.7) k/uL Lymphocytes # 1.2 (1.0-4.8) k/uL Monocytes # 0.5 (0-1.0) k/uL Eosinophils # 0.4 (0-0.7) k/uL Basophils # 0.0 (0-0.2) k/uL Hypochromasia Slight Sodium (137-145) mmol/L Potassium (3.5-5.1) mmol/L Chloride (98-107) mmol/L Carbon Dioxide (22-30) mmol/L Anion Gap mmol/L BUN (7-17) mg/dL Creatinine (0.52-1.04) mg/dL Est GFR (CKD-EPI)AfAm (>60 ml/min/1.73 sqM) Est GFR (CKD-EPI)NonAf (>60 ml/min/1.73 sqM) Glucose (74-99) mg/dL POC Glucose (mg/dL) 193 H (70-110) mg/dL POC Glu [employer]endant [employer] ID Chantell Solomon Plasma Lactic Acid Andrew (0.7-2.0) mmol/L Calcium (8.4-10.2) mg/dL Total Bilirubin (0.2-1.3) mg/dL AST (14-36) U/L ALT (4-34) U/L Alkaline Phosphatase (38-126) U/L Troponin I (0.000-0.034) ng/mL Total Protein (6.3-8.2) g/dL Albumin (3.5-5.0) g/dL Urine Color Yellow Urine Appearance Clear (Clear) Urine pH 6.0 (5.0-8.0) Ur Specific [place] 1.012 (1.001-1.035) Urine Protein 3+ H (Negative) Urine Glucose (UA) 1+ H (Negative) Urine Ketones Negative (Negative) Urine Blood Trace H (Negative) Urine Nitrite Negative (Negative) Urine Bilirubin Negative (Negative) Urine Urobilinogen <2.0 (<2.0) mg/dL Ur Leukocyte Esterase Negative (Negative) Urine RBC 1 (0-5) /hpf Urine WBC 2 (0-5) /hpf Ur Squamous Epith Cells <1 (0-4) /hpf Hyaline Casts 8 H (0-2) /lpf Urine Mucus Rare H (None) /hpf Serum Alcohol mg/dL Acetone, Qual (Negative) 12/14/22 12/14/22 12/14/22 Range/Units 18:06 18:06 18:06 WBC (3.8-10.6) k/uL RBC (3.80-5.40) m/uL Hgb (11.4-16.0) gm/dL Hct (34.0-46.0) % MCV (80.0-100.0) fL MCH (25.0-35.0) pg MCHC (31.0-37.0) g/dL RDW (11.5-15.5) % Plt Count (150-450) k/uL MPV Neutrophils % % Lymphocytes % % Monocytes % % Eosinophils % % Basophils % % Neutrophils # (1.3-7.7) k/uL Lymphocytes # (1.0-4.8) k/uL Monocytes # (0-1.0) k/uL Eosinophils # (0-0.7) k/uL Basophils # (0-0.2) k/uL Hypochromasia Sodium 137 (137-145) mmol/L Potassium 4.0 (3.5-5.1) mmol/L Chloride 104 (98-107) mmol/L Carbon Dioxide 26 (22-30) mmol/L Anion Gap 7 mmol/L BUN 30 H (7-17) mg/dL Creatinine 1.21 H (0.52-1.04) mg/dL Est GFR (CKD-EPI)AfAm 55 (>60 ml/min/1.73 sqM) Est GFR (CKD-EPI)NonAf 48 (>60 ml/min/1.73 sqM) Glucose 171 H (74-99) mg/dL POC Glucose (mg/dL) (70-110) mg/dL POC Glu [employer]endant [employer] ID Plasma Lactic Acid Andrew 1.1 (0.7-2.0) mmol/L Calcium 9.1 (8.4-10.2) mg/dL Total Bilirubin 0.3 (0.2-1.3) mg/dL AST 25 (14-36) U/L ALT 23 (4-34) U/L Alkaline Phosphatase 125 (38-126) U/L Troponin I <0.012 (0.000-0.034) ng/mL Total Protein 6.1 L (6.3-8.2) g/dL Albumin 3.2 L (3.5-5.0) g/dL Urine Color Urine Appearance (Clear) Urine pH (5.0-8.0) Ur Specific [place] (1.001-1.035) Urine Protein (Negative) Urine Glucose (UA) (Negative) Urine Ketones (Negative) Urine Blood (Negative) Urine Nitrite (Negative) Urine Bilirubin (Negative) Urine Urobilinogen (<2.0) mg/dL Ur Leukocyte Esterase (Negative) Urine RBC (0-5) /hpf Urine WBC (0-5) /hpf Ur Squamous Epith Cells (0-4) /hpf Hyaline Casts (0-2) /lpf Urine Mucus (None) /hpf Serum Alcohol <10 mg/dL Acetone, Qual Negative (Negative) Disposition Clinical Impression: Dizziness Disposition: HOME SELF-CARE Condition: Good Instructions (If sedation given, give patient instructions): Dizziness (ED) Is patient prescribed a controlled substance at d/c from ED?: No Referrals: Wiliam Ponce MD [Primary Care Provider] - 1-2 days
[2022-12-14 21:09] VITALS: BP 163/92; PULSE 74
== END 2022-12-14 21:09 | disposition home or self-care (01) ==
LOC: EC 15:03
DX: R42 Dizziness and giddiness (principal); E11.9 Type 2 diabetes mellitus without complications; I10 Essential (primary) hypertension; J44.9 Chronic obstructive pulmonary disease, unspecified; K21.9 Gastro-esophageal reflux disease without esophagitis; I25.10 Atherosclerotic heart disease of native coronary artery without angina pectoris; M19.90 Unspecified osteoarthritis, unspecified site; Z79.4 Long term (current) use of insulin; Z79.82 Long term (current) use of aspirin; Z79.84 Long term (current) use of oral hypoglycemic drugs; Z79.890 Hormone replacement therapy; Z79.899 Other long term (current) drug therapy; Z88.0 Allergy status to penicillin; Z88.1 Allergy status to other antibiotic agents; Z88.2 Allergy status to sulfonamides; Z88.5 Allergy status to narcotic agent
CPT/HCPCS: 36415; 93005; 80053; 82009; 83605; 84484; 85025; 81001; 71045; 99284; G0480; 80320

== ENCOUNTER 2023-05-03 05:42 | Day surgery (SDC) | payer MEDICARE ==
[2023-05-01 14:12] VITALS: BMI 32.5
[2023-05-03] MEDS ORDERED: LIDOCAINE 1% (10MG/ML) FOR IV START INTRADERMA PRN (05:52)
[2023-05-03] MEDS: LACTATED RINGERS 1,000 ML IV SCH ×2 (06:33→06:59)
[2023-05-03 06:42] VITALS: RESP 16; TEMP 97.1
[2023-05-03 06:52] LABS: Glucose,Whole Blood 149 mg/dL (70-110)
[2023-05-03] MEDS ORDERED: LIDOCAINE 1% INJ 10MG/ML (20 ML MDV) ONE (07:00)
[2023-05-03] MEDS ORDERED: PROPOFOL 10 MG/ML 20 ML VIAL IV ONE (07:00)
--- NOTE | 2023-05-03 07:28 | P.PCN ---
Date of Procedure: 05/03/23 Procedure(s) Performed: Brief history: Patient is a pleasant 63-year-old white female scheduled for an elective upper endoscopy as well as colonoscopy as a part of evaluation of abdominal pain/intermittent nausea vomiting and change in bowel habits for the last several months duration. She was diagnosed with diabetic gastroparesis in the past.. Procedure performed: Esophagogastroduodenoscopy with biopsy Colonoscopy with biopsy Preoperative diagnosis: Normal pain/intermittent nausea vomiting and early satiety Change in bowel habits Anesthesia: MAC Procedure: After informed consent was obtained from the patient was brought into the endoscopy unit and IV sedation was administered by anesthesia under continuous monitoring. Initially upper endoscopy was done. The Olympus GF 160 video endoscope was inserted inserted into the mouth and esophagus intubated without any difficulty and was gradually advanced into the stomach and duodenum and carefully examined. The bulb and second part of the duodenum appeared normal. The scope was then withdrawn into the stomach adequately insufflated with air and upon careful examination the antrum had erosive gastritis and biopsies were done from this area. Mucosa of the, cardia and fundus appeared normal. The scope was then withdrawn into the esophagus. The GE junction was located at 40 cm to the incisors. It appeared regular with no erythema erosions or ulcerations. Rest of the esophagus appeared normal. Patient tolerated the procedure well. At this time the patient continued to remain sedation. Initial digital rectal examination was normal. Olympus CF 160 video colonoscope was then inserted into the rectum and gradually advanced to the cecum without any difficulty. Careful examination was performed as the scope was gradually being withdrawn. The prep was excellent. The cecum appeared normal. Ascending colon there was a 4 mm polyp that was removed by cold biopsy. Rest of the, ascending colon, transverse colon, descending colon, appeared normal. The sigmoid: There was another 4 mm polyp removed by cold biopsy. Rest of the sigmoid colon and rectum appeared normal. Retroflexion was performed in the rectum and no lesions were noted. Patient tolerated the procedure well. Impression: 1. Upper endoscopy revealed mild antral gastritis but no evidence of esophagitis or peptic ulcer disease 2. Colonoscopy revealed 4 mm ascending colon polyp and a 3 mm sigmoid colon polyp status post removal by cold biopsy Recommendations: Findings of this examination were discussed with the patient as well as her family. She was advised to follow with the biopsy results. If the biopsy reveals adenoma she can have a repeat colonoscopy in 5 years. The meantime she' will continue with the famotidine 20 mg daily, small frequent meals and rectum..
[2023-05-03 07:49] LABS: Glucose,Whole Blood 158 mg/dL (70-110)
[2023-05-03 08:03] VITALS: BP 176/87; PULSE 62
== END 2023-05-03 08:24 | disposition home or self-care (01) ==
LOC: ORWHC2ENDO 05:42
PROVIDERS: ATTEND Internal Medicine Gastroenterology
DX: K29.50 Unspecified chronic gastritis without bleeding (principal); D12.2 Benign neoplasm of ascending colon; D12.5 Benign neoplasm of sigmoid colon; K31.84 Gastroparesis; E11.22 Type 2 diabetes mellitus with diabetic chronic kidney disease; R19.4 Change in bowel habit; I25.10 Atherosclerotic heart disease of native coronary artery without angina pectoris; I12.9 Hypertensive chronic kidney disease with stage 1 through stage 4 chronic kidney disease, or unspecified chronic kidney disease; N18.30 Chronic kidney disease, stage 3 unspecified; E11.43 Type 2 diabetes mellitus with diabetic autonomic (poly)neuropathy; E78.5 Hyperlipidemia, unspecified; J44.9 Chronic obstructive pulmonary disease, unspecified; G47.33 Obstructive sleep apnea (adult) (pediatric); E07.9 Disorder of thyroid, unspecified; G43.909 Migraine, unspecified, not intractable, without status migrainosus; K21.9 Gastro-esophageal reflux disease without esophagitis; Z79.890 Hormone replacement therapy; Z79.1 Long term (current) use of non-steroidal anti-inflammatories (NSAID); Z79.84 Long term (current) use of oral hypoglycemic drugs; Z79.899 Other long term (current) drug therapy; Z95.5 Presence of coronary angioplasty implant and graft
CPT/HCPCS: 88305; 45380; 43239; J2001; J2704

== ENCOUNTER → 2023-05-21 | Outpatient (CLI) | payer MEDICARE ==
[2023-05-21 13:55] LABS: Basophils # (A) 0.1 k/uL (0-0.2); Basophils % (A) 1 %; Eosinophils # (A) 0.2 k/uL (0-0.7); Eosinophils % (A) 3 %; HCT 37.8 % (34.0-46.0); HGB 11.9 gm/dL (11.4-16.0); Hypochromasia Slight; Lymphocytes # (A) 1.4 k/uL (1.0-4.8); Lymphocytes % (A) 16 %; MCH 28.9 pg (25.0-35.0); MCHC 31.3 g/dL (31.0-37.0); MCV 92.2 fL (80.0-100.0); Mean Platelet Volume 8.5; Monocytes # (A) 0.4 k/uL (0-1.0); Monocytes % (A) 5 %; Neutrophils # (A) 6.7 k/uL (1.3-7.7); Neutrophils % (A) 75 %; Platelet Count 272 k/uL (150-450); RDW 15.3 % (11.5-15.5)
[2023-05-21 14:05] LABS: African American GFR (CKD) 42 (>60 ml/min/1.73 sqM); Anion Gap 7 mmol/L; Blood Urea Nitrogen 36 mg/dL (7-17); Carbon Dioxide 29 mmol/L (22-30); Chloride 101 mmol/L (98-107); Non-African American GFR(CKD) 36 (>60 ml/min/1.73 sqM); Potassium 5.1 mmol/L (3.5-5.1); Sodium 137 mmol/L (137-145)
[2023-05-21 14:07] LABS: INR 0.9 (<1.2); Partial Thromboplastin Time 23.5 sec (22.0-30.0); Prothrombin Time 10.1 sec (10.0-12.5)
== END | disposition home or self-care (01) ==
LOC: LABWHC1 12:05
PROVIDERS: ATTEND Internal Medicine
DX: N18.32 Chronic kidney disease, stage 3b (principal)
CPT/HCPCS: 36415; 80051; 82565; 84520; 85025; 85610; 85730; 86850; 86900; 86901

== ENCOUNTER 2023-05-23 07:46 | Day surgery (SDC) | payer MEDICARE ==
[2023-05-23] MEDS ORDERED: ALPRAZolam 0.5 MG TAB PO PRN (08:16)
[2023-05-23] MEDS ORDERED: HYDROmorphone 0.5 MG/0.5 ML SYRINGE IVP PRN (08:16)
[2023-05-23 09:09] LABS: Glucose,Whole Blood 227 mg/dL (70-110)
[2023-05-23] MEDS ORDERED: DESMOPRESSIN ACETATE 32 MCG in SODIUM CHLORIDE 0.9% 50 ML IVPB ONE (09:30)
[2023-05-23 09:39] VITALS: RESP 16; TEMP 98
[2023-05-23 11:19] VITALS: BP 158/74; PULSE 74
--- NOTE | 2023-05-23 12:43 | CT ---
EXAMINATION TYPE: CT discontinued procedure DATE OF EXAM: 05/23/2023 COMPARISON: none HISTORY: Renal dysfunction CT DLP: 403 mGycm Automated exposure control for dose reduction was used. FINDINGS: Patient was positioned for the procedure with there is extensive artifact from the patient's orthoped ic hardware from surgery. There was a limited access percutaneously by CT scan. Case was discussed wi th the patient. The procedure was deferred. Hepatic granulomas seen and there is hyperdense lesions i nvolving bilateral kidneys which are indeterminate. Additional larger indeterminate right renal lesio n. Correlate with ultrasound. IMPRESSION: REFERRED CT GUIDED BIOPSY.
== END 2023-05-23 10:45 | disposition home or self-care (01) ==
LOC: RADPROMAIN 07:46
PROVIDERS: ATTEND Internal Medicine Nephrology
DX: Z53.8 Procedure and treatment not carried out for other reasons (principal); N18.32 Chronic kidney disease, stage 3b; I12.9 Hypertensive chronic kidney disease with stage 1 through stage 4 chronic kidney disease, or unspecified chronic kidney disease; E11.22 Type 2 diabetes mellitus with diabetic chronic kidney disease; E07.9 Disorder of thyroid, unspecified; Z86.74 Personal history of sudden cardiac arrest; Z87.448 Personal history of other diseases of urinary system; Z88.0 Allergy status to penicillin; Z88.5 Allergy status to narcotic agent; Z88.2 Allergy status to sulfonamides; Z79.82 Long term (current) use of aspirin; Z79.84 Long term (current) use of oral hypoglycemic drugs; Z79.899 Other long term (current) drug therapy; Z79.1 Long term (current) use of non-steroidal anti-inflammatories (NSAID); Z79.51 Long term (current) use of inhaled steroids; Z79.890 Hormone replacement therapy
CPT/HCPCS: 76380; J2597

== ENCOUNTER → 2023-07-09 | Outpatient (CLI) | payer MEDICARE ==
[2023-07-09 19:13] LABS: INR 0.98 sec (0.93-1.11); Prothrombin Time 10.6 sec (9.9-11.9)
== END | disposition home or self-care (01) ==
LOC: LABWHC1 11:34
PROVIDERS: ATTEND Radiology Vascular & Interventional Radiology
DX: Z01.812 Encounter for preprocedural laboratory examination (principal)
CPT/HCPCS: 36415; 85610